=== PATIENT | female | born 1935 | race Caucasian/White ===

== ENCOUNTER 2017-10-02 11:40 | Inpatient (IN) | payer OTHER ==
--- OUTSIDE RECORDS SUMMARY | 2017-10-02 11:42 | XMS REPORT | Clinical Summary ---
:1935 Author Organization [facility] Address [address] [place] [address] Care Team Providers Name Role Phone Randy Flannery MD Primary Care Provider Allergies Active Allergy Reactions Severity Noted Date Comments Ciprofloxacin 12/07/2015 Codeine 12/07/2015 Penicillins 12/07/2015 Sulfa (Sulfonamide Antibiotics) 12/07/2015 Current Medications Prescription Sig. Disp. Refills Start Date End Date Status lisinopril-hydrochlorothia 09/25/2015 Active zide (PRINZIDE,ZESTORETIC) 20-12.5 mg per tablet aspirin 325 MG tablet Take 325 mg by Active mouth. 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
[2017-10-02 12:36] LABS: Absolute Lymphocytes (CBC) 0.4 K/uL (0.7-4.9); Absolute Monocytes 0.4 K/uL (0.1-1.3); Absolute Neutrophil 9.9 K/uL (1.8-8.0); Basophils % 0.3 % (0-1.3); Eosinophils % 0.6 % (0-4.4); Hematocrit 39.4 % (36.0-45.0); Lymphocytes % 4.1 % (15.3-44.8); MCH 31.9 pg (27.0-35.0); MPV 7.2 fL (7.6-11.3); Monocytes % 3.6 % (3.3-12.3); RBC Red Blood Cell Count 4.11 M/uL (3.86-4.86)
--- NOTE | 2017-10-02 12:38 | RAD REPORT ---
EXAM DESCRIPTION: RAD - Chest Single View - 10/02/2017 12:29 pm CLINICAL HISTORY: Chest pain. COMPARISON: 08/29/2017, 01/18/2011 FINDINGS: Portable technique limits examination quality. The lungs are grossly clear. The heart is normal in size. No displaced fractures.Bony remodeling prox imal right humerus is again noted. IMPRESSION: No acute intrathoracic process suspected.
[2017-10-02 12:39] LABS: Protime INR 0.94
[2017-10-02 12:43] LABS: Potassium 4.5 mEq/L (3.6-5.0)
[2017-10-02 12:49] LABS: Albumin 4.3 g/dL (3.2-5.5); Bilirubin Direct 0.1 mg/dL (0-0.2); Bilirubin Total 0.7 mg/dL (0.3-1.2); Magnesium 1.8 mg/dL (1.8-2.5)
[2017-10-02 12:51] LABS: CKMB Creatine Kinase MB 1.6 ng/ml (0.3-4.0)
[2017-10-02] MEDS ORDERED: NA CHLORIDE 0.9% 1,000 ML ONE (12:51)
[2017-10-02 12:59] LABS: Blood Morphology Comment NOT SEEN (NOT SEEN); Platelet Estimate ADEQ; Urine White Blood Cell Casts OK
--- NOTE | 2017-10-02 14:33 | RAD REPORT ---
EXAM DESCRIPTION: CTAbdomen Pelvis W Contrast - 10/02/2017 2:20 pm CLINICAL HISTORY: Abdominal pain. COMPARISON: None. TECHNIQUE: Biphasic CT imaging of the abdomen and pelvis was performed with 100 ml non-ionic IV cont rast. All CT scans are performed using dose optimization technique as appropriate and may include automated exposure control or mA/KV adjustment according to patient size. FINDINGS: The lung bases are clear.Moderate hiatal hernia. The liver, spleen, pancreas, adrenal glands and kidneys are within normal limits. Small benign renal cysts bilaterally. No bowel obstruction, free air, free fluid or abscess. Prominent diverticulosis is present involving the distal descending colon and sigmoid colon. Mild peridiverticular inflammatory changes are present in the left lower quadrant compatible with mild acute diverticulitis. No peridiverticular abscess. T he appendix is normal. No evidence of significant lymphadenopathy. Moderate lumbosacral degenerative changes. IMPRESSION: Mild acute diverticulitis is present involving the left lower quadrant colon. No peridiv erticular abscess.
--- NOTE | 2017-10-02 14:39 | EDPHYS ---
Physician Documentation [facility] Name: Marta Butterfield Age: 82 yrs Sex: Female : 1935 Arrival Date: 10/02/2017 Time: 11:44 Bed 18 Private MD: ED Physician Kane Madrid HPI: 10/02 12:27 This 82 yrs old Female presents to ER via Wheelchair with complaints of romna Abdominal Pain, High Blood Pressure, Vomiting. 12:27 The patient has elevated blood pressure and discovered this at home. Onset: The roman symptoms/episode began/occurred just prior to arrival, this morning. Modifying factors: The symptoms are aggravated by. Associated signs and symptoms: The patient has no apparent associated signs or symptoms. Severity of symptoms: At its worst the blood pressure was mild, moderate, in the emergency department the blood pressure is unchanged. The patient has not experienced similar symptoms in the past. Historical: - Allergies: 11:52 PENICILLINS; tw2 11:52 Multiple Allergies List Not Available; tw2 11:52 pain medicine; tw2 - Home Meds: 11:53 aspirin 81 mg oral chew [Active]; valsartan 80 mg oral tab 1 tab 2 times per day tw2 [Active]; donepezil 10 mg oral tab 1 tab once daily [Active]; - PMHx: 11:52 breast cancer; Dementia; Hypertension; tw2 - PSHx: 11:52 Left partial mastectomy; tw2 - Immunization history:: Adult Immunizations up to date. - Social history:: Smoking status: Patient/guardian denies using tobacco. ROS: 12:27 Constitutional: Negative for fever, chills, and weight loss, Eyes: Negative for injury, roman pain, redness, and discharge, ENT: Negative for injury, pain, and discharge, Neck: Negative for injury, pain, and swelling, Cardiovascular: Negative for chest pain, palpitations, and edema, Respiratory: Negative for shortness of breath, cough, wheezing, and pleuritic chest pain, Back: Negative for injury and pain, : Negative for injury, bleeding, discharge, and swelling, MS/Extremity: Negative for injury and deformity, Skin: Negative for injury, rash, and discoloration, Neuro: Negative for headache, weakness, numbness, tingling, and seizure, Psych: Negative for depression, anxiety, suicide ideation, homicidal ideation, and hallucinations, Allergy/Immunology: Negative for hives, rash, and allergies, Endocrine: Negative for neck swelling, polydipsia, polyuria, polyphagia, and marked weight changes, Hematologic/Lymphatic: Negative for swollen nodes, abnormal bleeding, and unusual bruising. 12:27 Abdomen/GI: Positive for abdominal pain, nausea and vomiting, of the right upper quadrant, left upper quadrant, right lower quadrant and left lower quadrant. Exam: 12:27 Constitutional: This is a well developed, well nourished patient who is awake, alert, roman and in no acute distress. Head/Face: Normocephalic, atraumatic. Eyes: Pupils equal round and reactive to light, extra-ocular motions intact. Lids and lashes normal. Conjunctiva and sclera are non-icteric and not injected. Cornea within normal limits. Periorbital areas with no swelling, redness, or edema. ENT: Nares patent. No nasal discharge, no septal abnormalities noted. Tympanic membranes are normal and external auditory canals are clear. Oropharynx with no redness, swelling, or masses, exudates, or evidence of obstruction, uvula midline. Mucous membranes moist. Neck: Trachea midline, no thyromegaly or masses palpated, and no cervical lymphadenopathy. Supple, full range of motion without nuchal rigidity, or vertebral point tenderness. No Meningismus. Chest/axilla: Normal chest wall appearance and motion. Nontender with no deformity. No lesions are appreciated. Cardiovascular: Regular rate and rhythm with a normal S1 and S2. No gallops, murmurs, or rubs. Normal PMI, no JVD. No pulse deficits. Respiratory: Lungs have equal breath sounds bilaterally, clear to auscultation and percussion. No rales, rhonchi or wheezes noted. No increased work of breathing, no retractions or nasal flaring. Abdomen/GI: Soft, non-tender, with normal bowel sounds. No distension or tympany. No guarding or rebound. No evidence of tenderness throughout. Back: No spinal tenderness. No costovertebral tenderness. Full range of motion. Skin: Warm, dry with normal turgor. Normal color with no rashes, no lesions, and no evidence of cellulitis. MS/ Extremity: Pulses equal, no cyanosis. Neurovascular intact. Full, normal range of motion. Neuro: Awake and alert, GCS 15, oriented to person, place, time, and situation. Cranial nerves II-XII grossly intact. Motor strength 5/5 in all extremities. Sensory grossly intact. Cerebellar exam normal. Normal gait. Psych: Awake, alert, with orientation to person, place and time. Behavior, mood, and affect are within normal limits. Vital Signs: 11:50 BP 144 / 81; Pulse 84; Resp 17; Temp 98.6(O); Pulse Ox 99% on R/A; Weight 58.97 kg (R); tw2 Height 5 ft. 6 in. (167.64 cm); Pain 7/10; 13:20 BP 171 / 83; Pulse 72; Resp 16; Temp 98.2; Pulse Ox 99% on R/A; Pain 4/10; ch 14:37 BP 168 / 81; Pulse 78; Resp 22; Temp 98.8(O); Pulse Ox 99% on R/A; ch 15:58 BP 148 / 84; Pulse 76; Resp 18; Temp 98.5; Pulse Ox 99% on R/A; Pain 2/10; ch 16:50 BP 156 / 68; Pulse 69; Resp 15; Temp 97.6; Pulse Ox 99% on R/A; Pain 2/10; ch 11:50 Body Mass Index 20.98 (58.97 kg, 167.64 cm) tw2 MDM: 11:57 Patient medically screened. [facility] 12:28 Data reviewed: vital signs, nurses notes, lab test result(s), EKG, radiologic studies, [facility] CT scan, plain films. 10/02 12:01 Order name: Basic Metabolic Panel 10/02 12:01 Order name: BNP 10/02 12:01 Order name: CBC with Diff 10/02 12:01 Order name: Ckmb 10/02 12: Order name: CPK 10/02 12:01 Order name: LFT's; Complete Time: 14:32 [facility] 10/02 12:01 Order name: Magnesium; Complete Time: 14:32 roman 10/02 12:01 Order name: PT-INR; Complete Time: 14:32 10/02 12:01 Order name: Ptt, Activated; Complete Time: 14:32 10/02 12:01 Order name: Troponin (emerg Dept Use Only); Complete Time: 14:32 [facility] 10/02 12:01 Order name: Lipase; Complete Time: 14:32 [facility] 10/02 12:01 Order name: Urine Culture [facility] 10/02 12:01 Order name: Basic Metabolic Panel; Complete Time: 14:32 [facility] 10/02 12:01 Order name: BNP B-Type Natriuretic Peptide; Complete Time: 14:32 [facility] 10/02 12:01 Order name: XRAY Chest (1 view); Complete Time: 14:32 [facility] 10/02 12:01 Order name: CT Abd/Pelvis - W/Contrast; Complete Time: 14:35 [facility] 10/02 12:01 Order name: CBC with Automated Diff; Complete Time: 14:32 [facility] 10/02 12:01 Order name: CKMB Creatine Kinase MB; Complete Time: 14:32 [facility] 10/02 12:01 Order name: Creatine Phosphokinase; Complete Time: 14:32 [facility] 10/02 12:49 Order name: CBC Smear Scan; Complete Time: 14:32 [facility] 10/02 14:33 Order name: US Abdomen Limited; Complete Time: 16:27 [facility] 10/02 15:11 Order name: Amylase Level [facility] 10/02 15:12 Order name: Lipase [facility] 10/02 15:14 Order name: Urine Dipstick--Ancillary (enter results); Complete Time: 16:27 10/02 12:01 Order name: EKG; Complete Time: 12:01 [facility] 10/02 12:01 Order name: Cardiac monitoring; Complete Time: 12:47 [facility] 10/02 12:01 Order name: EKG - Nurse/Tech; Complete Time: 12:47 [facility] 10/02 12:01 Order name: IV Saline Lock; Complete Time: 12:47 [facility] 10/02 12:01 Order name: Labs collected and sent; Complete Time: 12:48 [facility] 10/02 12:01 Order name: O2 Per Protocol; Complete Time: 12:48 [facility] 10/02 12:01 Order name: O2 Sat Monitoring; Complete Time: 12:48 [facility] 10/02 12:01 Order name: Urine Dipstick-Ancillary (obtain specimen); Complete Time: 14:55 [facility] 10/02 14:44 Order name: CONS Physician Consult [facility] 10/02 14:44 Order name: NPO [facility] Administered Medications: 12:57 Drug: NS 0.9% 1000 ml Route: IV; Rate: 125 ml/hr; Site: right antecubital; 16:53 Follow up: IV Status: Infusion continued upon admission; IV Intake: 400ml 14:35 CANCELLED (Duplicate Order): levofloxacin 500 mg 100 ml IVPB once over 60 mins [facility] 14:38 Drug: Cipro 400 mg Volume: 200 ml; Route: IVPB; Infused Over: 60 mins; Site: right ch antecubital; 15:54 Follow up: IV Status: Completed infusion 14:39 Drug: Flagyl 500 mg Volume: 100 ml; Route: IVPB; Rate: 200 ml/hr; Infused Over: 30 ch mins; Site: right antecubital; 15:54 Follow up: IV Status: Completed infusion 14:39 Drug: Pepcid 20 mg Route: IVP; Site: right antecubital; 15:55 Follow up: Response: No adverse reaction; Marked relief of symptoms 15:57 Drug: Zofran 4 mg Route: IVP; Site: left forearm; 15:57 Follow up: Response: No adverse reaction; Marked relief of symptoms Disposition: 10/02/17 14:38 Hospitalization ordered by Doug Castorena for Inpatient Admission. Preliminary diagnosis are Abdominal tenderness, Acute pancreatitis, Diverticular disease of intestine, Diverticulitis of large intestine without perforation or abscess without bleeding. - Bed requested for Telemetry/MedSurg (Inpatient). - Status is Inpatient Admission. ch - Condition is Stable. - Problem is new. - Symptoms have improved. UTI on Admission? No Signatures: Dispatcher [employer] Antonia Dominique RN RN Kane Madrid MD MD cha Gallardo, Ana ag Wise, Tara RN RN tw2 Corrections: (The following items were deleted from the chart) 14:35 14:35 levofloxacin 500 mg 100 ml IVPB once over 60 mins ordered. roman owens
--- NOTE | 2017-10-02 14:39 | ER ---
Nurse's Notes [facility] Name: Marta Butterfield Age: 82 yrs Sex: Female : 1935 Arrival Date: 10/02/2017 Time: 11:44 Bed 18 Private MD: Diagnosis: Abdominal tenderness;Acute pancreatitis;Diverticular disease of intestine;Diverticulitis of large intestine without perforation or abscess without bleeding Presentation: 10/02 11:49 Presenting complaint: Patient states: I woke up feeling crummy about 830, just weak tw2 feeling and my stomach hurts, my blood pressure was 188/85. Transition of care: patient was not received from another setting of care. Onset of symptoms. Care prior to arrival: None. 11:49 Method Of Arrival: Wheelchair tw2 11:49 Acuity: SANTI 3 tw2 Historical: - Allergies: 11:52 PENICILLINS; tw2 11:52 Multiple Allergies List Not Available; tw2 11:52 pain medicine; tw2 - Home Meds: 11:53 aspirin 81 mg oral chew [Active]; valsartan 80 mg oral tab 1 tab 2 times per day tw2 [Active]; donepezil 10 mg oral tab 1 tab once daily [Active]; - PMHx: 11:52 breast cancer; Dementia; Hypertension; tw2 - PSHx: 11:52 Left partial mastectomy; tw2 - Immunization history:: Adult Immunizations up to date. - Social history:: Smoking status: Patient/guardian denies using tobacco. Screenin:38 Abuse screen: Denies threats or abuse. Denies injuries from another. Nutritional ch screening: No deficits noted. Tuberculosis screening: No symptoms or risk factors identified. Fall Risk None identified. Assessment: 12:38 General: Appears in no apparent distress. comfortable, Behavior is calm, cooperative, ch appropriate for age. Pain: Complains of pain in epigastric area and abdomen diffusely Pain currently is 4 out of 10 on a pain scale. Neuro: Level of Consciousness is awake, alert, obeys commands. Respiratory: Airway is patent Respiratory effort is even, unlabored, Breath sounds are coarse bilaterally. GI: Abdomen is round non-distended, Bowel sounds present X 4 quads. Abd is soft and non tender X 4 quads. Reports lower abdominal pain, upper abdominal pain, gaseousness, nausea, vomiting. : No signs and/or symptoms were reported regarding the genitourinary system. Derm: Skin is pink, warm \T\ dry. 12:38 Reassessment: PT FINISHED DRINKING CONTRAST. ch 13:20 Reassessment: Patient appears in no apparent distress at this time. No changes from previously documented assessment. Patient and/or family updated on plan of care and expected duration. Pain level reassessed. Patient is alert, oriented x 3, equal unlabored respirations, skin warm/dry/pink. 14:37 Reassessment: Patient appears in no apparent distress at this time. pt oob to [facility] for ch urine sample with assistance. pt states she feels dizzy since the ct scan. no neuro deficits noted at this time. 14:49 Reassessment: Patient appears in no apparent distress at this time. Patient and/or ch family updated on plan of care and expected duration. Pain level reassessed. Patient is alert, oriented x 3, equal unlabored respirations, skin warm/dry/pink. Patient states feeling better. Patient states symptoms have improved. 14:56 Reassessment: Patient appears in no apparent distress at this time. Patient and/or ch family updated on plan of care and expected duration. Pain level reassessed. Patient is alert, oriented x 3, equal unlabored respirations, skin warm/dry/pink. dr camejo in oom now. 15:35 Reassessment: Patient appears in no apparent distress at this time. Patient and/or ch family updated on plan of care and expected duration. Pain level reassessed. pt vomiting in room. medicated per orders. 16:08 Reassessment: Patient appears in no apparent distress at this time. Patient and/or ch family updated on plan of care and expected duration. Pain level reassessed. Patient is alert, oriented x 3, equal unlabored respirations, skin warm/dry/pink. Patient states feeling better. Patient states symptoms have improved. 16:10 Reassessment: Patient appears in no apparent distress at this time. Patient and/or ch family updated on plan of care and expected duration. Pain level reassessed. Patient is alert, oriented x 3, equal unlabored respirations, skin warm/dry/pink. attempting to call report now. 16:50 Reassessment: Patient appears in no apparent distress at this time. Patient and/or ch family updated on plan of care and expected duration. Pain level reassessed. Patient is alert, oriented x 3, equal unlabored respirations, skin warm/dry/pink. report given at bedside to rosa. Vital Signs: 11:50 BP 144 / 81; Pulse 84; Resp 17; Temp 98.6(O); Pulse Ox 99% on R/A; Weight 58.97 kg (R); tw2 Height 5 ft. 6 in. (167.64 cm); Pain 7/10; 13:20 BP 171 / 83; Pulse 72; Resp 16; Temp 98.2; Pulse Ox 99% on R/A; Pain 4/10; ch 14:37 BP 168 / 81; Pulse 78; Resp 22; Temp 98.8(O); Pulse Ox 99% on R/A; ch 15:58 BP 148 / 84; Pulse 76; Resp 18; Temp 98.5; Pulse Ox 99% on R/A; Pain 2/10; ch 16:50 BP 156 / 68; Pulse 69; Resp 15; Temp 97.6; Pulse Ox 99% on R/A; Pain 2/10; ch 11:50 Body Mass Index 20.98 (58.97 kg, 167.64 cm) tw2 ED Course: 11:44 Patient arrived in ED. rg4 11:50 Triage completed. tw2 11:51 Arm band placed on. tw2 11:57 Kane Madrid MD is Attending Physician. [facility] 12:01 Antonia Virgen, EMIR is Primary Nurse. ch 12:15 Inserted saline lock: 20 gauge in right antecubital area, using aseptic technique. ch Blood collected. Missed attempt(s): 20 gauge in right forearm. Bleeding controlled, band aid applied, catheter tip intact. 12:28 X-ray completed. Portable x-ray completed in exam room. Patient tolerated procedure ag1 well. 12:29 XRAY Chest (1 view) In Process Unspecified. EDMS 12:38 No apparent distress. Resting quietly. ch 12:38 Patient has correct armband on for positive identification. Placed in gown. Bed in low ch position. Call light in reach. athletic monitor on. Pulse ox on. NIBP on. 12:38 No provider procedures requiring assistance completed. ch 12:55 EKG done, by human resources technician. reviewed by Kane Madrid MD. at1 14:19 CT Abd/Pelvis - W/Contrast In Process Unspecified. EDMS 14:37 Doug Camejo DO is Hospitalizing Provider. roman 15:02 Patient taken to ultrasound. hr 15:21 US Abdomen Limited In Process Unspecified. EDMS 15:25 Patient moved back from ultrasound. hr 16:50 Patient admitted, IV remains in place. ch Administered Medications: 12:57 Drug: NS 0.9% 1000 ml Route: IV; Rate: 125 ml/hr; Site: right antecubital; 16:53 Follow up: IV Status: Infusion continued upon admission; IV Intake: 400ml ch 14:35 CANCELLED (Duplicate Order): levofloxacin 500 mg 100 ml IVPB once over 60 mins roman 14:38 Drug: Cipro 400 mg Volume: 200 ml; Route: IVPB; Infused Over: 60 mins; Site: right ch antecubital; 15:54 Follow up: IV Status: Completed infusion ch 14:39 Drug: Flagyl 500 mg Volume: 100 ml; Route: IVPB; Rate: 200 ml/hr; Infused Over: 30 ch mins; Site: right antecubital; 15:54 Follow up: IV Status: Completed infusion ch 14:39 Drug: Pepcid 20 mg Route: IVP; Site: right antecubital; 15:55 Follow up: Response: No adverse reaction; Marked relief of symptoms ch 15:57 Drug: Zofran 4 mg Route: IVP; Site: left forearm; ch 15:57 Follow up: Response: No adverse reaction; Marked relief of symptoms ch Intake: 16:53 IV: 400ml; Total: 400ml. Outcome: 14:38 Decision to Hospitalize by Provider. roman 16:50 Admitted to Med/surg accompanied by nurse, family with patient, via wheelchair, room ch 230, with chart, Report called to rosa at bedside 16:50 Condition: stable 16:50 Instructed on the need for admit. 16:54 Patient left the ED. Signatures: Dispatcher [employer] EDMS Antonia Virgen, RN Kane Rosas ch, MD MD cha Rod, Haley hr Rebeca dey, sports umpire EKG Tat1 Olinda Arrington ag1 Stephanie Roberts RN RN tw2 Annie Gimenez rg4
[2017-10-02] MEDS ORDERED: CIPROFLOXACIN 400mg IV 400 MG/200 ML BAG IV ONE (14:42)
[2017-10-02] MEDS ORDERED: METRONIDAZOLE 500mg IVPB 500 MG/100 ML BAG IV ONE (14:42)
[2017-10-02] MEDS ORDERED: NA CHLORIDE 0.9% 1,000 ML IV SCH (15:00)
[2017-10-02] MEDS ORDERED: FENTANYL CITR 100 MCG/2 ML IV PRN (15:05)
[2017-10-02] MEDS ORDERED: HYDROCODONE/APAP 7.5/325 MG TAB PO PRN (15:05)
[2017-10-02] MEDS ORDERED: TRAMADOL HCL 50 MG TAB PO PRN (15:05)
[2017-10-02] MEDS ORDERED: ACETAMINOPHEN 650MG/RECT SUPP PR PRN (15:05)
[2017-10-02] MEDS ORDERED: SODIUM CHLORIDE 0.9% 10ML INJ IV PRN (15:05)
[2017-10-02] MEDS ORDERED: ONDANSETRON 4 MG/2 ML VIAL IV PRN (15:05)
[2017-10-02] MEDS ORDERED: ACETAMINOPHEN 500 MG TAB PO PRN (15:05)
[2017-10-02] MEDS: NA CHLORIDE 0.9% 1,000 ML IV SCH (15:09)
--- NOTE | 2017-10-02 15:17 | P.HP ---
Certification for Inpatient Patient admitted to: Inpatient With expected LOS: >2 Midnights Patient will require the following post-hospital care: None Practitioner: I am a practitioner with admitting privileges, knowledge of patient current condition, hospital course, and medical plan of care. Services: Services provided to patient in accordance with Admission requirements found in Title 42 Section 412.3 of the Code of Federal Regulations Patient History Date of Service: 10/02/17 Primary Care Provider: Dr. Kendall Reason for admission: Fatigue, abdominal pain History of Present Illness: 82-year-old female presented to the ER with fatigue and abdominal pain. The patient reports that she start to have some fatigue and abdominal pain over the last day. Pain was mainly localized to the periumbilical region. She rated the pain about a 6/10. It was associated with some nausea and vomiting. She had reported some chills and fatigue. This morning symptoms got worse. She had an upset stomach as well. Patient had reported over the last several months that she has been having some diarrhea. Patient has never had a colonoscopy in the past. In the ER the patient was evaluated. Vital signs stable. White count 10.9, percent neutrophils and absolute neutrophils were elevated. Lipase was elevated along with an abnormal GFR 55. Chest x-ray unremarkable. CT of the abdomen showed a moderate hiatal hernia. Mild to moderate distal descending colon and sigmoid colon diverticulitis noted. Due to nature her symptoms and age of the patient, she was admitted for further evaluation and treatment. When I saw the patient in the ER, pain seemed to be better controlled with medication. Daughter was at bedside. Patient has mild dementia with history of hypertension. She reports that about 1 month ago she was started on blood pressure medication-valsartan. This was discontinued due to low blood pressures. Otherwise she has been without any major symptoms. Allergies Multiple Allergy (Uncoded 08/30/17 00:20) Unknown Multiple Allergies List Allergy (Uncoded 09/25/16 01:18) Unknown Penicil Allergy (Uncoded 08/30/17 00:20) Unknown Home medications list reviewed: Yes - Past Medical/Surgical History Diabetic: No -: Dementia -: Hypertension -: History breast cancer -: Left mastectomy -: Bilateral total knee replacements Psychosocial/ Personal History: The patient is . She lives by herself. She is a . She has 3 children. - Family History Father -: Heart disease, Cancer (Prostate cancer) Brother -: Cancer (Colon cancer) - Social History Smoking Status: Never smoker Alcohol use: No CD- Drugs: No Caffeine use: No Place of Residence: Home Review of Systems General: Chills, Weakness, As per HPI Eyes: Unremarkable ENT: Unremarkable Respiratory: Unremarkable Cardiovascular: Unremarkable Gastrointestinal: Nausea, Vomiting, Abdominal Pain, As per HPI Genitourinary: Unremarkable Musculoskeletal: Unremarkable Integumentary: Unremarkable Neurological: As per HPI Lymphatics: Unremarkable Physical Examination - Physical Exam General: Alert, In no apparent distress, Oriented x3, Cooperative HEENT: Atraumatic, Normocephalic, PERRLA, Mucous membr. moist/pink Neck: Supple, No Thyromegaly Respiratory: Clear to auscultation bilaterally, Normal air movement Cardiovascular: Normal pulses, Regular rate/rhythm Gastrointestinal: Normal bowel sounds, Soft and benign, Non-distended, No masses , No rebound, No guarding, Tenderness (Tenderness noted to the left lower quadrant and around the umbilicus) Musculoskeletal: No erythema, No tenderness, No warmth Integumentary: No tenderness/swelling, No erythema, No warmth, No cyanosis Neurological: Normal speech, Normal strength at 5/5 x4 extr, Normal tone Lymphatics: No axilla or inguinal lymphadenopathy - Studies Laboratory Data (last 24 hrs) 10/02/17 12:15: PT 11.1, INR 0.94, APTT 27.9 10/02/17 12:15: WBC 10.9, Hgb 13.1, Hct 39.4, Plt Count 250 10/02/17 12:15: B-Natriuretic Peptide 79 10/02/17 12:15: Sodium 139, Potassium 4.5, BUN 20, Creatinine 0.97, Glucose 115 , Magnesium 1.8, Total Bilirubin 0.7, AST 22, ALT 13, Alkaline Phosphatase 102, Lipase 337 H Assessment and Plan - Problems (Diagnosis) (1) Abdominal pain Current Visit: Yes Status: Acute Plan: Abdominal pain secondary to diverticulitis to the distal descending and sigmoid region. Will treat with IV Cipro and Flagyl. Will keep the patient NPO for today. Will continue IV fluids. GI has been consulted. Patient will need colonoscopy in 4-6 weeks. She has never had a colonoscopy done before. There is a family history of colon cancer. She reports a history of breast cancer. Anticipate clear liquid diet tomorrow. Likely discharge in the next 2-3 days. Advanced directives address in detail with the patient. She understands the risks and benefits of CPR. Her medical power of corporate attorney was also at bedside. The patient wishes to be DNR. Qualifiers: Abdominal location: left lower quadrant Qualified Code(s): R10.32 - Left lower quadrant pain (2) Diverticulitis Current Visit: Yes Status: Acute Plan: Descending and sigmoid colon diverticulitis. Continue with above plan of care. Will keep the patient NPO. Will continue with Cipro and Flagyl. Anticipate starting a diet tomorrow. (3) Nausea and vomiting Current Visit: Yes Status: Acute Plan: Will provide medication as needed Qualifiers: Vomiting type: unspecified Vomiting Intractability: unspecified Qualified Code(s): R11.2 - Nausea with vomiting, unspecified (4) Hiatal hernia with GERD Current Visit: Yes Status: Chronic Plan: Will provide PPI. This can be further evaluated as an outpatient. (5) Dehydration Current Visit: Yes Status: Acute Plan: Will continue with IV fluids. Will monitor electrolytes closely. (6) Hypertension Current Visit: Yes Status: Chronic Plan: Patient with history of hypertension. She was started on valsartan about a month ago. This had to be discontinued due to low blood pressure. Blood pressure stable at this time. Will monitor closely. Will hold off on blood pressure medication. Qualifiers: Hypertension type: essential hypertension Qualified Code(s): I10 - Essential (primary) hypertension (7) Dementia Current Visit: Yes Status: Chronic Plan: Patient with mild dementia. She is in the process of being evaluated by neurology as an outpatient. Patient appropriate at this time. Will continue with her medication but will verify medication 1st. Discharge Plan: Home Plan to discharge in: 72 Hours - Advance Directives Does patient have a Living Will: No Does patient have a Durable POA for Healthcare: No - Code Status/Comfort Care Code Status Assessed: Yes (Patient DNR) Time Spent Managing Pts Care (In Minutes): 55
[2017-10-02] MEDS ORDERED: ONDANSETRON 4 MG/2 ML VIAL ONE (15:32)
--- NOTE | 2017-10-02 15:32 | RAD REPORT ---
EXAM DESCRIPTION: US - Abdomen Exam Limited - 10/02/2017 3:21 pm CLINICAL HISTORY: Abdominal pain. COMPARISON: None. FINDINGS: The gallbladder demonstrates no gallstones. No pericholecystic fluid or gallbladder wall t hickening. The common bile duct is normal measuring 4 mm. The liver demonstrates no findings of intrahepatic biliary dilatation. IMPRESSION: Unremarkable examination.
[2017-10-02 15:39] LABS: Urine Blood TRACE (NEG); Urine Glucose NEGATIVE (NEG); Urine Protein NEGATIVE (NEG); Urine Specific Gravity 1.015 (1.005-1.030)
[2017-10-02] MEDS: ENOXAPARIN 40 MG/0.4 ML SQ SCH (16:00)
[2017-10-02 18:10] LABS: Lipase 129 U/L (22-51)
[2017-10-02 18:26] LABS: Amylase Level 197 U/L (28-100)
[2017-10-02] MEDS ORDERED: CEFTRIAXONE 1000 MG/VIAL ONE (20:27)
[2017-10-02] MEDS ORDERED: CIPROFLOXACIN 400mg IV 400 MG/200 ML BAG IV SCH (21:00)
[2017-10-02] MEDS ORDERED: CEFTRIAXONE 1 GM/NS 50 ML 1 GM/50 ML BAG IV SCH (21:00)
[2017-10-02] MEDS ORDERED: MAGNESIUM SULFATE 1 gm IVPB 1 GM/100 ML BAG IV ONE (21:00)
[2017-10-02] MEDS ORDERED: NA CHLORIDE 0.9% 100 ML ONE (21:19)
[2017-10-03] MEDS: METRONIDAZOLE 500mg IVPB 500 MG/100 ML BAG IV SCH ×3 (00:20→17:00)
[2017-10-03] MEDS: NA CHLORIDE 0.9% 1,000 ML IV SCH ×3 (00:20→22:18)
[2017-10-03 05:05] LABS: Absolute Lymphocytes (CBC) 0.6 K/uL (0.7-4.9); Absolute Monocytes 0.4 K/uL (0.1-1.3); Absolute Neutrophil 4.3 K/uL (1.8-8.0); Basophils % 0.2 % (0-1.3); Hematocrit 33.5 % (36.0-45.0); Lymphocytes % 11.4 % (15.3-44.8); MCH 31.8 pg (27.0-35.0); MCV 94.9 fL (80-100); Monocytes % 6.9 % (3.3-12.3); RBC Red Blood Cell Count 3.53 M/uL (3.86-4.86)
[2017-10-03 05:27] LABS: Albumin 3.2 g/dL (3.2-5.5); Bilirubin Total 0.7 mg/dL (0.3-1.2); Magnesium 1.9 mg/dL (1.8-2.5); Potassium 3.6 mEq/L (3.6-5.0)
[2017-10-03] MEDS ORDERED: KCL 20 MEQ/100 mL IVPB 20 MEQ/100 ML BAG IV SCH (07:00)
--- NOTE | 2017-10-03 08:02 | EKG ---
Test Date: 2017-10-02 Test Time: 12:48:34 Aircraft Refueller: ROSEY MEASUREMENT RESULTS: Intervals: Rate: 77 NH: 156 QRSD: 92 QT: 372 QTc: 420 [place]: P: 17 NH: 156 QRS: -18 T: 25 INTERPRETIVE STATEMENTS: Normal sinus rhythm Normal ECG Compared to ECG 08/29/2017 22:49:08 Left-axis deviation no longer present Electronically Signed On 10-03-17 07:59:48 CDT by Jg Thompson
[2017-10-03] MEDS ORDERED: PANTOPRAZOLE 40 MG INJ IVP SCH (09:00)
[2017-10-03] MEDS: ENOXAPARIN 40 MG/0.4 ML SQ SCH (09:23)
--- NOTE | 2017-10-03 10:17 | P.PN ---
Subjective Date of Service: 10/03/17 Primary Care Provider: Dr. Kendall Chief Complaint: Fatigue, abdominal pain Subjective: Improving (Patient without any significant nausea. Pain much improved. Patient did report some pain to the right arm and right lower extremity after receiving potassium supplementation.) Physical Examination - Vital Signs Temperature: 98.2 F Blood Pressure: 133/62 Pulse: 68 Respirations: 16 Pulse Ox (%): 93 - Physical Exam General: Alert, In no apparent distress, Oriented x3, Cooperative HEENT: Atraumatic, Mucous membr. moist/pink Neck: Supple, No Thyromegaly Respiratory: Clear to auscultation bilaterally, Normal air movement Cardiovascular: Normal pulses, Regular rate/rhythm Gastrointestinal: Normal bowel sounds, Soft and benign, Non-distended, No masses , No rebound, No guarding, Tenderness (Minimal tenderness to the abdomen significantly improved) Musculoskeletal: No erythema, No tenderness, No warmth Integumentary: No tenderness/swelling, No erythema, No warmth, No cyanosis Neurological: Normal speech, Normal strength at 5/5 x4 extr, Normal tone, Normal affect Lymphatics: No axilla or inguinal lymphadenopathy - Studies Laboratory Data (last 24 hrs) 10/02/17 12:15: PT 11.1, INR 0.94, APTT 27.9 10/02/17 12:15: WBC 10.9, Hgb 13.1, Hct 39.4, Plt Count 250 10/02/17 12:15: B-Natriuretic Peptide 79 10/02/17 12:15: Sodium 139, Potassium 4.5, BUN 20, Creatinine 0.97, Glucose 115 , Magnesium 1.8, Total Bilirubin 0.7, AST 22, ALT 13, Alkaline Phosphatase 102, Lipase 337 H Medications List Reviewed: Yes Assessment & Plan - Problems (Diagnosis) (1) Abdominal pain Current Visit: Yes Status: Acute Plan: Abdominal pain secondary to diverticulitis to the distal descending and sigmoid region. Antibiotics were switched due to her allergies. Patient on Rocephin and Flagyl. Patient seems to be doing well. Will start clear liquid and advanced as tolerated. Anticipate possible discharge tomorrow. Patient will need colonoscopy in 4-6 weeks. Education on diverticulitis addressed. Qualifiers: Abdominal location: left lower quadrant Qualified Code(s): R10.32 - Left lower quadrant pain (2) Diverticulitis Current Visit: Yes Status: Acute Plan: Descending and sigmoid colon diverticulitis. Continue with above plan of care. (3) Nausea and vomiting Current Visit: Yes Status: Acute Plan: Will provide medication as needed Qualifiers: Vomiting type: unspecified Vomiting Intractability: unspecified Qualified Code(s): R11.2 - Nausea with vomiting, unspecified (4) Hiatal hernia with GERD Current Visit: Yes Status: Chronic Plan: Will provide PPI. This can be further evaluated as an outpatient. Patient may need GI evaluation as an outpatient to further address. (5) Dehydration Current Visit: Yes Status: Acute Plan: Will continue with IV fluids. Will monitor electrolytes closely. (6) Hypertension Current Visit: Yes Status: Chronic Plan: Patient with history of hypertension. She was started on valsartan about a month ago. This had to be discontinued due to low blood pressure. Blood pressure stable at this time. Will monitor closely. Will hold off on blood pressure medication. Qualifiers: Hypertension type: essential hypertension Qualified Code(s): I10 - Essential (primary) hypertension (7) Dementia Current Visit: Yes Status: Chronic Plan: Patient with mild dementia. She is in the process of being evaluated by neurology as an outpatient. Patient appropriate at this time. Will continue with her medication Discharge Plan: Home Plan to discharge in: 24 Hours Time Spent Managing Pts Care (In Minutes): 55
[2017-10-03] MEDS ORDERED: CEFTRIAXONE/SWI 1gm 1 GM/10 ML SYR IV SCH (21:00)
[2017-10-03] MEDS ORDERED: DONEPEZIL HCL 5 MG TAB PO SCH (21:00)
[2017-10-04] MEDS: METRONIDAZOLE 500mg IVPB 500 MG/100 ML BAG IV SCH ×2 (01:26→09:20)
[2017-10-04 05:38] LABS: Absolute Lymphocytes (CBC) 0.8 K/uL (0.7-4.9); Absolute Monocytes 0.6 K/uL (0.1-1.3); Absolute Neutrophil 1.9 K/uL (1.8-8.0); Basophils % 0.5 % (0-1.3); Eosinophils % 1.3 % (0-4.4); Hematocrit 30.8 % (36.0-45.0); Lymphocytes % 24.9 % (15.3-44.8); MCH 32.8 pg (27.0-35.0); MCV 94.6 fL (80-100); MPV 6.8 fL (7.6-11.3); Monocytes % 16.8 % (3.3-12.3); RBC Red Blood Cell Count 3.26 M/uL (3.86-4.86)
[2017-10-04 05:51] LABS: Albumin 3.1 g/dL (3.2-5.5); Bilirubin Total 0.5 mg/dL (0.3-1.2); Magnesium 1.7 mg/dL (1.8-2.5); Potassium 3.4 mEq/L (3.6-5.0); Protein, Total 5.4 g/dL (6.0-8.3)
[2017-10-04] MEDS ORDERED: PANTOPRAZOLE 40MG TABLET PO SCH (06:30)
[2017-10-04] MEDS ORDERED: MAGNESIUM SULFATE 1 gm IVPB 1 GM/100 ML BAG IV ONE (06:35)
[2017-10-04 06:38] LABS: Platelet Estimate ADEQ; Urine White Blood Cell Casts OK
[2017-10-04 06:39] LABS: Blood Morphology Comment NOT SEEN (NOT SEEN)
[2017-10-04] MEDS ORDERED: POTASSIUM CL SA 10 MEQ TAB PO ONE (09:00)
[2017-10-04] MEDS ORDERED: ASPIRIN 81 MG CHEWABLE TABLET PO SCH (09:00)
[2017-10-04] MEDS: ENOXAPARIN 40 MG/0.4 ML SQ SCH (09:20)
[2017-10-04] MEDS: NA CHLORIDE 0.9% 1,000 ML IV SCH (09:21)
--- NOTE | 2017-10-04 10:17 | P.DS ---
Admission Date: 10/02/17 Discharge Date: 10/04/17 Primary Care Provider: Dr. Kendall Disposition: ROUTINE DISCHARGE Discharge Condition: GOOD Reason for Admission: Fatigue, abdominal pain Consultations: GI=Dr. Parker Procedures: Abdominal ultrasound: Unremarkable. CT scan: FINDINGS: The lung bases are clear.Moderate hiatal hernia. The liver, spleen, pancreas, adrenal glands and kidneys are within normal limits. Small benign renal cysts bilaterally. No bowel obstruction, free air, free fluid or abscess. Prominent diverticulosis is present involving the distal descending colon and sigmoid colon. Mild peridiverticular inflammatory changes are present in the left lower quadrant compatible with mild acute diverticulitis. No peridiverticular abscess. The appendix is normal. No evidence of significant lymphadenopathy. Moderate lumbosacral degenerative changes. IMPRESSION: Mild acute diverticulitis is present involving the left lower quadrant colon. No peridiverticular abscess. - Problems (1) Abdominal pain Current Visit: Yes Status: Acute Qualifiers: Abdominal location: left lower quadrant Qualified Code(s): R10.32 - Left lower quadrant pain (2) Diverticulitis Current Visit: Yes Status: Acute (3) Nausea and vomiting Current Visit: Yes Status: Acute Qualifiers: Vomiting type: unspecified Vomiting Intractability: unspecified Qualified Code(s): R11.2 - Nausea with vomiting, unspecified (4) Hiatal hernia with GERD Current Visit: Yes Status: Chronic (5) Dehydration Current Visit: Yes Status: Acute (6) Hypertension Current Visit: Yes Status: Chronic Qualifiers: Hypertension type: essential hypertension Qualified Code(s): I10 - Essential (primary) hypertension (7) Dementia Current Visit: Yes Status: Chronic Brief History of Present Illness: 82-year-old female presented to the ER with fatigue and abdominal pain. The patient reports that she start to have some fatigue and abdominal pain over the last day. Pain was mainly localized to the periumbilical region. She rated the pain about a 6/10. It was associated with some nausea and vomiting. She had reported some chills and fatigue. This morning symptoms got worse. She had an upset stomach as well. Patient had reported over the last several months that she has been having some diarrhea. Patient has never had a colonoscopy in the past. In the ER the patient was evaluated. Vital signs stable. White count 10.9, percent neutrophils and absolute neutrophils were elevated. Lipase was elevated along with an abnormal GFR 55. Chest x-ray unremarkable. CT of the abdomen showed a moderate hiatal hernia. Mild to moderate distal descending colon and sigmoid colon diverticulitis noted. Due to nature her symptoms and age of the patient, she was admitted for further evaluation and treatment. When I saw the patient in the ER, pain seemed to be better controlled with medication. Daughter was at bedside. Patient has mild dementia with history of hypertension. She reports that about 1 month ago she was started on blood pressure medication-valsartan. This was discontinued due to low blood pressures. Otherwise she has been without any major symptoms. Hospital Course: Patient presented with abdominal pain. Patient found to have left sided diverticulitis. CT scan showed diverticulitis. No diverticular abscess noted. Patient also found to have hiatal hernia. Abdominal ultrasound unremarkable. C diff culture was neg. The patient was admitted and treated with IV antibiotic therapy. The patient was able to tolerate her diet. Pain well controlled. Patient evaluated by GI. No intervention needed at this. At discharge patient will continue with Ceftin 250 mg 1 pill twice daily and Flagyl 500 mg 1 pill 3 times a day for 7 more days. Zofran 4 mg 3 times a day as needed for nausea will be provided. Education on diverticulitis will be provided. Recommendation is for the patient to follow up with GI in 2-4 weeks. Recommendation is for the patient to have a colonoscopy in 4-6 weeks to further address and monitor. Patient with GERD with hiatal hernia. Patient will continue with Protonix 40 mg 1 pill once daily. Education on GERD and hiatal hernia will be provided. Patient with dementia. Patient will continue with her medication-Aricept Patient will continue with aspirin 81 mg daily. Patient with history of hypertension. Blood pressure mildly elevated. Patient previously took beta-larissa therapy the was not able to tolerated. Blood pressure is slightly elevated at discharge. At discharge patient will continue with Norvasc 2.5 mg daily. Recommendation is to maintain blood pressures less 150/80. Further adjustment can be done by her PCP. Patient may need to hold her medication if blood pressure less than 110 systolic. Vital Signs/Physical Exam: Temp Pulse Resp BP Pulse Ox 98.6 F 65 18 154/67 H 94 10/04/17 08:00 10/04/17 08:00 10/04/17 08:00 10/04/17 08:00 10/04/17 08:00 General: Alert, In no apparent distress, Oriented x3, Cooperative, Demented HEENT: Atraumatic, Mucous membr. moist/pink Neck: Supple, No Thyromegaly Respiratory: Clear to auscultation bilaterally Cardiovascular: Normal pulses, Regular rate/rhythm Gastrointestinal: Normal bowel sounds, Soft and benign, Non-distended, No tenderness, No masses, No rebound, No guarding Musculoskeletal: No erythema, No tenderness, No warmth Integumentary: No tenderness/swelling, No erythema, No warmth, No cyanosis Neurological: Normal speech, Normal strength at 5/5 x4 extr, Normal tone, Normal affect Laboratory Data at Discharge: WBC 3.3 K/uL (4.3-10.9) L D 10/04/17 04:58 Hgb 10.7 g/dL (12.0-15.0) L 10/04/17 04:58 Hct 30.8 % (36.0-45.0) L 10/04/17 04:58 Plt Count 172 K/uL (152-406) 10/04/17 04:58 PT 11.1 SECONDS (9.5-12.5) 10/02/17 12:15 INR 0.94 10/02/17 12:15 APTT 27.9 SECONDS (24.3-36.9) 10/02/17 12:15 Sodium 138 mEq/L (135-145) 10/04/17 04:58 Potassium 3.4 mEq/L (3.6-5.0) L 10/04/17 04:58 BUN 9 mg/dL (6-20) 10/04/17 04:58 Creatinine 0.96 mg/dL (0.44-1.00) 10/04/17 04:58 Glucose 95 mg/dL (65-120) 10/04/17 04:58 Magnesium 1.7 mg/dL (1.8-2.5) L 10/04/17 04:58 Total Bilirubin 0.5 mg/dL (0.3-1.2) 10/04/17 04:58 AST 27 IU/L (10-42) 10/04/17 04:58 ALT 15 IU/L (10-60) 10/04/17 04:58 Alkaline Phosphatase 72 IU/L (42-121) 10/04/17 04:58 B-Natriuretic Peptide 79 pg/ml (<=100) 10/02/17 12:15 Amylase 197 U/L (28-100) H 10/02/17 17:49 Lipase 129 U/L (22-51) H 10/02/17 17:49 Home Medications: Aspirin 81 mg PO DAILY 10/02/17 Donepezil [Aricept*] 5 mg PO BEDTIME 10/02/17 Amlodipine [Norvasc] 2.5 mg PO DAILY #30 tab 10/04/17 Cefuroxime [Ceftin] 250 mg PO BID #14 tab 10/04/17 Metronidazole [Flagyl] 500 mg PO Q8H #21 tablet 10/04/17 Ondansetron HCl [Zofran] 4 mg PO TID PRN #10 tablet 10/04/17 Pantoprazole [Protonix Tab*] 40 mg PO DAILYAC #30 tab 10/04/17 New Medications: Amlodipine [Norvasc] 2.5 mg PO DAILY #30 tab Cefuroxime [Ceftin] 250 mg PO BID #14 tab Metronidazole [Flagyl] 500 mg PO Q8H #21 tablet Ondansetron HCl [Zofran] 4 mg PO TID PRN #10 tablet PRN Reason: Nausea / Vomiting Pantoprazole [Protonix Tab*] 40 mg PO DAILYAC #30 tab Patient Discharge Instructions: 1. Patient will need a follow up with her PCP in 1 week to follow up this hospitalization. 2. Patient presented with abdominal pain. Patient found to have left sided diverticulitis. At discharge patient will continue with Ceftin 250 mg 1 pill twice daily and Flagyl 500 mg 1 pill 3 times a day for 7 more days. Zofran 4 mg 3 times a day as needed for nausea will be provided. Education on diverticulitis will be provided. Recommendation is for the patient to follow up with GI in 2-4 weeks. Recommendation is for the patient to have a colonoscopy in 4-6 weeks to further address and monitor. 3. Patient with GERD with hiatal hernia. Patient will continue with Protonix 40 mg 1 pill once daily. Education on GERD and hiatal hernia will be provided. 4. Patient with dementia. Patient will continue with her medication-Aricept. 5. Patient will continue with aspirin 81 mg daily. 6. Patient with history of hypertension. Blood pressure mildly elevated. At discharge patient will continue with Norvasc 2.5 mg daily. Recommendation is to maintain blood pressures less 150/80. Further adjustment can be done by her PCP. Patient may need to hold her medication if blood pressure less than 110 systolic. Diet: Diverticular diet Activity: Fall precautions Time spent managing pt's care (in minutes): 55
== END 2017-10-04 14:53 | disposition home or self-care (01) | DRG 392 ==
LOC: ER 11:40 → ERHOLD 14:41 → 2ND 16:29
PROVIDERS: ADMIT Family Medicine; ATTEND Family Medicine
DX: K57.92 Diverticulitis of intestine, part unspecified, without perforation or abscess without bleeding (principal); K44.9 Diaphragmatic hernia without obstruction or gangrene; K21.9 Gastro-esophageal reflux disease without esophagitis; E86.0 Dehydration; I10 Essential (primary) hypertension; F03.90 Unspecified dementia, unspecified severity, without behavioral disturbance, psychotic disturbance, mood disturbance, and anxiety; Z88.0 Allergy status to penicillin; Z85.3 Personal history of malignant neoplasm of breast; Z96.653 Presence of artificial knee joint, bilateral
CPT/HCPCS: 36415; 71045; 74177; 76705; 80048; 80053; 80076; 81003; 82150; 82550; 82553; 83690; 83735; 83880; 84484; 85025; 85610; 85730; 87045; 87046; 87086; 87088; 87493; 93005; 99285; J0696; J0744; J1650; J2405; J3475; J7030; Q9967

== ENCOUNTER 2018-01-28 00:11 | Emergency (ER) | payer OTHER ==
--- OUTSIDE RECORDS SUMMARY | 2018-01-28 00:13 | XMS REPORT | Clinical Summary ---
:1935 Author Organization [facility] Address [address] [place] [address] Care Team Providers Name Role Phone Randy [...] Health Maintenance Due Date Last Done Comments SHINGRIX VACCINE (#1) 1987 ZOSTER VACCINE 1997 PNEUMOCOCCAL POLYSACCHARIDE VACCINE AGE 65 AND OVER 2002 PNEUMOCOCCAL-13 2002 INFLUENZA VACCINE 01/23/2018 Results Not on fileafter 01/27/2017 Insurance Payer Benefit Plan / Group Subscriber ID Type Phone Address [employer]HC MEDICARE [employer] HMO
[2018-01-28] MEDS ORDERED: TETANUS & DIPHTHERIA TOX,ADULT 0.5 ML VIAL ONE (01:06)
--- NOTE | 2018-01-28 02:42 | ER ---
Nurse's Notes [facility] Name: Marta Butterfield Age: 82 yrs Sex: Female : 1935 Arrival Date: 01/28/2018 Time: 00:12 Bed 5 Private MD: Asad Buckley H Diagnosis: Head injury. Contusion right wrist. S/P Fall Presentation: 01/28 00:35 Presenting complaint: Patient states: "I fell going after a hobson and tripped and fell jd3 forwards from a standing position onto my head and elbow." pt denied LOC and fina on blood thinners. Care prior to arrival: None. Mechanism of Injury: Fall from standing position. Trauma event details: Injury occurred in the [facility]. 00:35 Method Of Arrival: Wheelchair jd3 00:35 Acuity: SANTI 3 jd3 00:48 Transition of care: patient was not received from another setting of care. Onset of jd3 symptoms was January 28, 2018. Risk Assessment: Do you want to hurt yourself or someone else? Patient reports no desire to harm self or others. Initial Sepsis Screen: Does the patient meet any 2 criteria? No. Patient's initial sepsis screen is negative. Does the patient have a suspected source of infection? No. Patient's initial sepsis screen is negative. Trauma Activation: Physician: ED Physician; Name: Dr. Villareal; Notified At: ; Arrived At: Physician: General Surgeon; Name: ; Notified At: ; Arrived At: Physician: Radiology; Name: Kathryn; Notified At: ; Arrived At: Physician: Respiratory; Name: ; Notified At: ; Arrived At: Physician: Lab; Name: ; Notified At: ; Arrived At: Historical: - Allergies: 00:55 PENICILLINS; jd3 00:55 Ciprofloxacin; jd3 00:55 Codeine; jd3 00:55 Lortab; jd3 00:55 Vicodin; jd3 00:55 Bactrim; jd3 00:55 general anesthesia; jd3 00:55 Fosamax; jd3 00:55 Mevacor; jd3 00:55 Lipitor; jd3 00:55 Niacin; jd3 00:55 tramadol; jd3 00:55 morphine; jd3 - Home Meds: 00:55 aspirin 81 mg Oral chew [Active]; donepezil 10 mg Oral tab 1 tab once daily [Active]; jd3 donepezil 10 mg oral tab [Active]; Norvasc 2.5 mg Oral tab [Active]; - PMHx: 00:55 breast cancer; Dementia; Hypertension; Diverticulitis; jd3 - PSHx: 00:55 Left partial mastectomy; Heart stents; right arm sx; bryan knee sx; jd3 - Immunization history: Last tetanus immunization: unknown. - Social history:: Smoking status: Patient/guardian denies using tobacco. - Ebola Screening: : Patient negative for fever greater than or equal to 101.5 degrees Fahrenheit, and additional compatible Ebola Virus Disease symptoms. Screenin:48 Abuse screen: Denies threats or abuse. Tuberculosis screening: No symptoms or risk jd3 factors identified. 00:56 Nutritional screening: No deficits noted. Fall Risk Fall in past 12 months (25 points). jd3 Ambulatory Aid- None/Bed Rest/Nurse Assist (0 pts). Gait- Weak (10 pts.). Mental Status- Oriented to own ability (0 pts). Total Sims Fall Scale indicates Low Risk Score (25-44 pts). Fall prevention measures have been instituted. Side Rails Up X 2 Placed close to Nursing Station Frequent Obs/Assesments occuring Family Present and informed to notify staff if they need to leave bedside. Primary Survey: 01:00 Breathing/Chest: Respiratory pattern: regular, Respiratory effort: spontaneous, tl1 unlabored, Breath sounds: clear, bilaterally. Chest inspection: symmetrical rise and fall of the chest. Circulation: Skin color: pink, Skin temperature: warm, dry. Disability Alert. Reassessment Breathing/Chest Respiratory pattern Regular Respiratory effort Spontaneous Unlabored Breath sounds Clear Chest inspection Symmetrical Circulation Pulses Palpable Color [place] Temperature Warm Dry. Secondary Survey: 01:01 HEENT: Head No injury/deformity Face Other 2cm laceration to right eyebrow Eyes: No tl1 injury or deformity noted. Ears: clear bilaterally. Nose: clear to bilateral nares. Gastrointestinal: No deficits noted. : No deficits noted. Musculoskeletal: No deficits noted. Injury Description: Laceration sustained to outer aspect of right eyebrow. Assessment: 00:38 General: Appears in no apparent distress. Behavior is calm, cooperative, appropriate jd3 for age. Pain: Complains of pain in head and right elbow Pain currently is 3 out of 10 on a pain scale. Quality of pain is described as aching. Neuro: Level of Consciousness is awake, alert, obeys commands, Oriented to person, place, time, situation, Speech is normal, Pupils are PERRLA, Intact. EENT: No signs and/or symptoms were reported regarding the EENT system. Cardiovascular: Heart tones S1 S2 present Capillary refill < 3 seconds Patient's skin is warm and dry. Respiratory: Airway is patent Respiratory effort is even, unlabored, Respiratory pattern is regular, symmetrical, Breath sounds are clear bilaterally. GI: Abdomen is round non-distended, Patient currently denies nausea, vomiting. : No signs and/or symptoms were reported regarding the genitourinary system. Derm: Skin is intact, Skin is dry, Skin is normal, Skin temperature is warm. Musculoskeletal: Circulation, motion, and sensation intact. Range of motion: intact in all extremities. Injury Description: skin tear to right elbow. and laceration about 2 cm in length to right brow area. 01:09 Reassessment: Patient appears in no apparent distress at this time. Patient and/or jd3 family updated on plan of care and expected duration. Pain level reassessed. Patient is alert, oriented x 3, equal unlabored respirations, skin warm/dry/pink. 02:13 Reassessment: Patient appears in no apparent distress at this time. Patient and/or jd3 family updated on plan of care and expected duration. Pain level reassessed. Patient is alert, oriented x 3, equal unlabored respirations, skin warm/dry/pink. 02:53 Reassessment: Patient appears in no apparent distress at this time. Patient and/or jd3 family updated on plan of care and expected duration. Pain level reassessed. Patient is alert, oriented x 3, equal unlabored respirations, skin warm/dry/pink. pt reported understanding of discharge instructions, assisted pt to front of ER with wheelchair. Vital Signs: 00:46 BP 170 / 93; Pulse 72; Resp 16 S; Pulse Ox 99% on R/A; Weight 58.97 kg (R); Height 5 jd3 ft. 6 in. (167.64 cm) (R); Pain 3/10; 01:08 BP 175 / 80; Pulse 60; Resp 16 S; Pulse Ox 99% on R/A; jd3 02:13 BP 153 / 62; Pulse 60; Resp 16 S; Pulse Ox 98% on R/A; jd3 00:46 Body Mass Index 20.98 (58.97 kg, 167.64 cm) jd3 [place] Coma Score: 00:46 Eye Response: spontaneous(4). Verbal Response: oriented(5). Motor Response: obeys jd3 commands(6). Total: 15. Trauma Score (Adult): 00:46 Eye Response: spontaneous(1); Verbal Response: oriented(1); Motor Response: obeys jd3 commands(2); Systolic BP: > 89 mm Hg(4); Respiratory Rate: 10 to 29 per min(4); [place] Score: 15; Trauma Score: 12 ED Course: 00:12 Patient arrived in ED. am2 00:12 Asad Buckley DO is Private Physician. am2 00:16 Constantin Villareal MD is Attending Physician. pkl 00:33 Georgi Christensen RN is Primary Nurse. jd3 00:37 Triage completed. jd3 00:48 Bed in low position. Call light in reach. Side rails up X2. Adult w/ patient. jd3 00:48 Patient maintains SpO2 saturation greater than 95% on room air. jd3 00:56 Arm band placed on. jd3 00:59 X-ray completed. Portable x-ray completed in exam room. Patient tolerated procedure kw well. 01:00 Wrist Right 3 View XRAY In Process Unspecified. EDMS 01:[address] via wheelchair. kw1 01:50 CT Head Brain wo Cont In Process Unspecified. EDMS 01:52 CT completed. Patient tolerated procedure well. Patient moved back from CT. kw1 02:41 Asad Buckley DO is Referral Physician. pkl 02:50 No provider procedures requiring assistance completed. Patient did not have IV access jd3 during this emergency room visit. 02:52 Thermoregulation: warm blanket given to patient. jd3 Administered Medications: 01:06 Drug: Tetanus-Diphtheria Toxoid Adult 0.5 ml {Cloth Picker: Relive. Exp: jd3 03/13/2020. Lot #: [id number]. } Route: IM; Site: left deltoid; 01:25 Follow up: Response: No adverse reaction jd3 Intake: 02:51 PO: 0ml; Total: 0ml. jd3 Output: 02:51 Urine: 0ml; Total: 0ml. jd3 Outcome: 02:42 Discharge ordered by . sunil 02:51 Discharged to home via wheelchair, with family. jd3 02:51 Condition: stable 02:51 Discharge instructions given to patient, family, Instructed on discharge instructions, follow up and referral plans. Demonstrated understanding of instructions, follow-up care. 02:51 Patient's length of stay in the Emergency Department was greater than 2 hours. waiting jd3 on diagnostic results.Patient's length of stay extended due to 02:53 Patient left the ED. jd3 Signatures: Dispatcher [employer] EDMS Constantin Villareal MD MD pkl Whitley, Kimberlee kw Lasagna, Tonya, RN RN tl1 Rebeca Keys Jonathon RN RN jd3 Yane Griffin kw1 Corrections: (The following items were deleted from the chart) 00:59 00:[address] Mono bui jd3
--- NOTE | 2018-01-28 02:42 | EDPHYS ---
Physician Documentation [facility] Name: Marta Butterfield Age: 82 yrs Sex: Female : 1935 Arrival Date: 01/28/2018 Time: 00:12 Bed 5 Private MD: Asad Buckley H ED Physician Constantin Villareal HPI: 01/28 00:54 This 82 yrs old Female presents to ER via Wheelchair with complaints of pkl Facial Injury, Fall Injury. 00:55 Details of fall: The patient fell from an upright position. Onset: The symptoms/episode pkl began/occurred just prior to arrival. Associated injuries: The patient sustained injury to the head, contusion, hematoma, swelling, right eye, right elbow, skin tear, right wrist, contusion, painful injury. Historical: - Allergies: 00:55 PENICILLINS; jd3 00:55 Ciprofloxacin; jd3 00:55 Codeine; jd3 00:55 Lortab; jd3 00:55 Vicodin; jd3 00:55 Bactrim; jd3 00:55 general anesthesia; jd3 00:55 Fosamax; jd3 00:55 Mevacor; jd3 00:55 Lipitor; jd3 00:55 Niacin; jd3 00:55 tramadol; jd3 00:55 morphine; jd3 - Home Meds: 00:55 aspirin 81 mg Oral chew [Active]; donepezil 10 mg Oral tab 1 tab once daily [Active]; jd3 donepezil 10 mg oral tab [Active]; Norvasc 2.5 mg Oral tab [Active]; - PMHx: 00:55 breast cancer; Dementia; Hypertension; Diverticulitis; jd3 - PSHx: 00:55 Left partial mastectomy; Heart stents; right arm sx; bryan knee sx; jd3 - Immunization history: Last tetanus immunization: unknown. - Social history:: Smoking status: Patient/guardian denies using tobacco. - Ebola Screening: : Patient negative for fever greater than or equal to 101.5 degrees Fahrenheit, and additional compatible Ebola Virus Disease symptoms. ROS: 00:55 ENT: Negative for injury, pain, and discharge. pkl 00:55 Eyes: Positive for swelling, superficial right eyebrow. 00:55 Neck: Negative for injury or acute deformity. 00:55 Cardiovascular: Negative for chest pain. 00:55 Respiratory: Negative for cough, shortness of breath. 00:55 Abdomen/GI: Negative for abdominal pain, nausea, vomiting, and diarrhea. 00:55 Back: Negative for acute changes. 00:55 : Negative for urinary symptoms. 00:55 MS/extremity: Positive for contusion, tenderness, of the right elbow, skin tear. 00:55 Neuro: Negative for altered mental status, loss of consciousness. pkl Exam: 00:55 ENT: Nares patent. No nasal discharge, no septal abnormalities noted. Tympanic pkl membranes are normal and external auditory canals are clear. Oropharynx with no redness, swelling, or masses, exudates, or evidence of obstruction, uvula midline. Mucous membranes moist. 00:55 Head/face: Noted is contusion, swelling, that is mild, of the right eye. 00:55 Neck: Exam negative for acute changes. 00:55 Chest/axilla: Exam negative for acute changes. 00:55 Cardiovascular: Rate: normal, Rhythm: regular. 00:55 Respiratory: the patient does not display signs of respiratory distress, Respirations: normal, Breath sounds: are clear throughout. 00:55 Abdomen/GI: Bowel sounds: normal, Palpation: abdomen is soft and non-tender, in all quadrants. 00:55 Back: Exam negative for acute changes. 00:55 : Exam negative for acute changes. 00:55 Musculoskeletal/extremity: Extremities: grossly normal except: noted in the right elbow: skin tear, noted in the right wrist: pain, tenderness. 00:55 Neuro: Orientation: is normal, Mentation: is normal, Cranial nerves: grossly normal, Motor: is normal. Vital Signs: 00:46 BP 170 / 93; Pulse 72; Resp 16 S; Pulse Ox 99% on R/A; Weight 58.97 kg (R); Height 5 jd3 ft. 6 in. (167.64 cm) (R); Pain 3/10; 01:08 BP 175 / 80; Pulse 60; Resp 16 S; Pulse Ox 99% on R/A; jd3 02:13 BP 153 / 62; Pulse 60; Resp 16 S; Pulse Ox 98% on R/A; jd3 00:46 Body Mass Index 20.98 (58.97 kg, 167.64 cm) jd3 [place] Coma Score: 00:46 Eye Response: spontaneous(4). Verbal Response: oriented(5). Motor Response: obeys jd3 commands(6). Total: 15. Trauma Score (Adult): 00:46 Eye Response: spontaneous(1); Verbal Response: oriented(1); Motor Response: obeys jd3 commands(2); Systolic BP: > 89 mm Hg(4); Respiratory Rate: 10 to 29 per min(4); [place] Score: 15; Trauma Score: 12 MDM: 00:16 Patient medically screened. pkl 02:40 Data reviewed: vital signs, nurses notes, radiologic studies, CT scan, plain films. pkl 01/28 00:48 Order name: CT Head Brain wo Cont pkl 01/28 00:48 Order name: Wrist Right 3 View XRAY pk Administered Medications: 01:06 Drug: Tetanus-Diphtheria Toxoid Adult 0.5 ml {Sanding Machine Tender: Notch. Exp: jd3 03/13/2020. Lot #: [id number]. } Route: IM; Site: left deltoid; 01:25 Follow up: Response: No adverse reaction jd3 Disposition: 01/28/18 02:42 Discharged to Home. Impression: Head injury. Contusion right wrist. S/P Fall. - Condition is Stable. - Medication Reconciliation Form, Thank You Letter, Antibiotic Education, Prescription Opioid Use form. - Follow up: Asad Buckley DO; When: 2 - 3 days; Reason: Re-evaluation by your physician. - Problem is new. - Symptoms have improved. Signatures: Dispatcher [employer] EDMS Constantin Villareal MD MD pkGeorgi Lowe RN RN jd3 Corrections: (The following items were deleted from the chart) 02:53 02:42 01/28/2018 02:42 Discharged to Home. Impression: Head injury. Contusion right jd3 wrist. S/P Fall. Condition is Stable. Forms are Medication Reconciliation Form, Thank You Letter, Antibiotic Education, Prescription Opioid Use. Follow up: Asad Buckley; When: 2 - 3 days; Reason: Re-evaluation by your physician. Problem is new. Symptoms have improved. pkl
--- NOTE | 2018-01-28 08:19 | RAD REPORT ---
EXAM DESCRIPTION: RAD - Wrist Right 3 View - 01/28/2018 1:03 am CLINICAL HISTORY: PAIN Pain COMPARISON: No comparisons FINDINGS: Diffuse osteopenia is seen. Moderate arthritic changes are noted. Hardware plate is presen t in the distal radius. No acute fracture or subluxation seen.
--- NOTE | 2018-01-28 08:29 | RAD REPORT ---
EXAM DESCRIPTION: CT - Head Brain Wo Cont - 01/28/2018 3:51 am CLINICAL HISTORY: fall Head injury. COMPARISON: Head Brain Wo Cont dated 08/29/2017; Facial Bones W/ Mpr dated 09/24/2016 TECHNIQUE: All CT scans are performed using dose optimization technique as appropriate and may inclu de automated exposure control or mA/KV adjustment according to patient size. FINDINGS: No intracranial hemorrhage, hydrocephalus or extra-axial fluid collection.Mild generalized brain atrophy is present with mild periventricular and deep white matter chronic microvascular ische octavia changes.No areas of brain edema or evidence of midline shift. The paranasal sinuses and mastoids are clear. Mild right periorbital soft tissue swelling. The calvar ium is intact. Vertebral arteries are calcified. IMPRESSION: No acute intracranial abnormality.
== END 2018-01-28 02:53 | disposition home or self-care (01) ==
LOC: ER 00:11
DX: S05.11XA Contusion of eyeball and orbital tissues, right eye, initial encounter (principal); W01.0XXA Fall on same level from slipping, tripping and stumbling without subsequent striking against object, initial encounter; Y93.01 Activity, walking, marching and hiking; Y92.019 Unspecified place in single-family (private) house as the place of occurrence of the external cause; S60.211A Contusion of right wrist, initial encounter; S50.01XA Contusion of right elbow, initial encounter; Z85.3 Personal history of malignant neoplasm of breast; F03.90 Unspecified dementia, unspecified severity, without behavioral disturbance, psychotic disturbance, mood disturbance, and anxiety; I10 Essential (primary) hypertension; K57.92 Diverticulitis of intestine, part unspecified, without perforation or abscess without bleeding; Z23 Encounter for immunization
CPT/HCPCS: 70450; 90714; 99284

== ENCOUNTER 2018-09-18 13:58 | Emergency (ER) | payer OTHER ==
--- OUTSIDE RECORDS SUMMARY | 2018-09-18 14:00 | XMS REPORT | Clinical Summary ---
:1935 Author Organization [facility] Address [address] [place] [address] Care Team Providers Name Role Phone Randy Flannery MD Primary Care Provider Allergies Active Allergy Reactions Severity Noted Date Comments Ciprofloxacin 12/07/2015 Codeine 12/07/2015 Penicillins 12/07/2015 Sulfa (Sulfonamide Antibiotics) 12/07/2015 Medications Medication Sig Dispensed Refills Start Date End Date Status lisinopril-hydrochlorot 0 09/25/2015 Active hiazide (PRINZIDE,ZESTORETIC) 20-12.5 mg per tablet aspirin 325 MG tablet Take 325 mg by 0 Active mouth. 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 Last Filed Vital Signs Not on file Plan of Treatment Health Maintenance Due Date Last Done Comments SHINGLES VACCINES (#1) 1987 65+ PNEUMOCOCCAL VACCINE (1 of 2 - PCV13) 2002 PNEUMOCOCCAL POLYSACCHARIDE VACCINE AGE 65 AND OVER 2002 INFLUENZA VACCINE 01/23/2018 Results Not on fileafter 09/17/2017 Insurance Payer Benefit Plan / Group Subscriber ID Type Phone Address UHC MEDICARE UHC MEDICARE HMO/PPO xxxxxxxxx HMO Advance Directives Patient has advance care planning documents on file. For more information, please contact:Marty Arnold[address] [place] [address]
--- OUTSIDE RECORDS SUMMARY | 2018-09-18 14:02 | XMS REPORT | Continuity of Care Document ---
:1935 Author Organization Interface Problems Problem Status Onset Classification Date Comments Source Date Reported PHYSICAL Active 09/19/19 Condition 11/24/2014 Medical EXAMINATION 14 Group OTHER ACCIDENTAL Active 01/30/20 Condition 11/24/2014 Medical FALL FROM ONE LEVEL 13 Group TO ANOTHER OSTEOARTHRITIS Active Condition 11/24/2014 Medical Group OSTEOPOROSIS Active Condition 11/24/2014 Medical Group HYPERLIPIDEMIA Active Condition 11/24/2014 Medical Group HYPERTENSION Active Condition 11/24/2014 Medical Group Dementia Active Finding 10/04/[address] [facility] [place] Diverticulitis Active Finding 10/04/[address] [facility] [place] Hiatal hernia with Active Finding 10/04/[address] [facility] [place] Nausea and vomiting Active Finding 10/04/[address] [facility] [place] Abdominal pain Active Finding 10/04/[address] [facility] [place] Hypertension Active Finding 10/04/[address] [facility] [place] Dehydration Active Finding 10/04/[address] [facility] [place] Gastroesophageal Active Finding 10/04/[address] [facility] [address] reflux disease with [facility] hiatal hernia [place] Medications Medication Details Route Status Patient Ordering Order Source Instructions Provider Date Pantoprazole DAILY AT Active Prezas [facility]30 018 [facility] [place] Metronidazole Q8H Active Prezas [facility] [place] Cefuroxime TWICE Active Prezas [facility] DAILY [facility]18 [facility] [place] Ondansetron Hcl THREE Active Prezas [facility] TIMES A 018 [facility] - DAY PRN [place] For Nausea / Vomiting Amlodipine DAILY Active Prezas [facility]18 [facility] [place] Aspirin DAILY Active [facility] [place] Donepezil AT BEDTIME Active [facility] [place] ANDER ALLERGY one time Active Medical TABS daily 015 Group DESOXIMETASONE twice Active Medical 0.25 % CREA daily 015 Group ANASTROZOLE 1 MG 1 tablet Active Medical TABS daily 014 Group LISINOPRIL-HYDROC 1 tab by Active Medical HLOROTHIAZIDE mouth 014 Group 20-12.5 MG TABS daily AMBIEN 5 MG TABS one hs Active Medical daily. 014 Group ANASTROZOLE 1 MG 1 tablet Active Medical TABS daily 014 Group LISINOPRIL-HYDROC 1 tab by Active Medical HLOROTHIAZIDE mouth 014 Group 20-12.5 MG TABS daily AMBIEN 5 MG TABS one hs Active Medical daily. 014 Group ALPRAZOLAM 0.5 MG 1 tab by No Medical TABS mouth Longer 013 Group daily as Active needed OMEPRAZOLE 20 MG 1 tab by No Medical TBEC mouth Longer 013 Group daily as Active needed ALPRAZOLAM 0.5 MG 1 tab by No Medical TABS mouth Longer 013 Group daily as Active needed ALPRAZOLAM 0.5 MG 1 tab by No Medical TABS mouth Longer 013 Group daily as Active needed OMEPRAZOLE 20 MG 1 tab by No Medical TBEC mouth Longer 013 Group daily as Active needed ANASTROZOLE 1 MG Active Medical TABS 013 Group AMLODIPINE-ATORVA 1 tab by No Medical STATIN 10-10 MG mouth Longer 013 Group TABS every Active other day AMLODIPINE-ATORVA 1 tab by No Medical STATIN 10-10 MG mouth Longer 013 Group TABS every Active other day LISINOPRIL-HYDROC 1 tab by Active Medical HLOROTHIAZIDE mouth Group 20-12.5 MG TABS daily ASPIRIN 325 MG 1 tab by Active Medical TABS mouth Group daily CO Q 10 100 MG 1 tab by Active Medical CAPS mouth Group daily ASPIRIN 325 MG 1 tab by Active Medical TABS mouth Group daily ASPIRIN 325 MG 1 tab by Active Medical TABS mouth Group daily Allergies, Adverse Reactions, Alerts Substance Category Reaction Severity Reaction Status Date Comments Source type Reported PCN Drug PCN MH allergy 3 Medical Group CIPRO Drug CIPRO MH allergy 3 Medical Group CODEINE Drug CODEINE MH allergy 3 Medical Group LORTAB Drug LORTAB MH allergy 3 Medical Group VICODIN Drug VICODIN MH allergy 3 Medical Group LIPITOR Drug LIPITOR MH allergy 3 Medical Group NIACIN Drug NIACIN MH allergy 3 Medical Group TRAMADOL HCL Drug TRAMADOL MH allergy HCL 3 Medical Group MORPHINE Drug MORPHINE MH allergy 3 Medical Group MEVACOR Drug MEVACOR MH allergy 3 Medical Group LOPID Drug LOPID MH allergy 3 Medical Group FOSAMAX Drug FOSAMAX MH allergy 3 Medical Group BACTRIM Drug BACTRIM MH allergy 3 Medical Group acetaminophen Itching Allergy to Active [facility] [place] ciprofloxacin Hives Allergy to Active [facility] Sub[facility] [place] codeine Hives/Rash Allergy to Active [facility] Sub[facility] [place] hydrocodone Itching Allergy to Active [facility] Sub[facility] 8 [facility] [place] lovastatin Shortness Allergy to Active [facility] Substance 8 [facility] [place] Penicillins Unknown Allergy to Active [facility] Sub[facility] 8 [facility] [place] sulfamethoxaz Hives Allergy to Active [facility] [place] Substance 8 [facility] [place] trimethoprim Hives Allergy to Active [facility] Sub[facility] 8 [facility] [place] Immunizations Immunization Date Given Site Status Last Updated Comments Source influenza 07/16/2007 completed Medical immunization (Flu Group Vax) has been administered Results Order Name Results Value Reference Date Interpretation Comments Source Range Laboratory Blood Blood 10/[address] [facility] [facility] Morphology Morphology [facility] Comment Comment [place] [facility] Total 0.5 mg/dL 0.3 - 1.2 10/04 [facility] Bilirubin [facility] [place] [facility] Sodium Level 138 mEq/L 135 - 145 10/[address] Studies /2018 [facility] [place] [facility] Serum Total 5.4 g/dL 6.0 - 8.3 10/04 [facility]. Studies Protein /2018 [facility] [place] [facility] Potassium 3.4 mEq/L 3.6 - 5.0 10/04 [facility]. Studies Level /2017 [facility] [place] Laboratory Magnesium 1.7 mg/dL 1.8 - 2.5 10/04 [facility]. Studies Level /2017 [facility] [place] Laboratory Glucose Level 95 mg/dL 65 - 120 10/[address] [facility] [address] Studies /2017 [facility] [place] Laboratory Globulin 2.3 g/dL 2.3 - 3.5 10/04 [facility]. Studies /2017 [facility] [place] Laboratory Estimat 56 mL/min 90 10/04 [facility]. Studies Glomerular /2017 [facility] Filtration [place] Rate Laboratory Creatinine 0.96 mg/dL 0.44 - 04 [facility]. Studies 1.00 /2017 [facility] [place] Laboratory Chloride 113 mEq/L 101 - 111 10/04 [facility]. Studies Level /2017 [facility] [place] Laboratory Carbon 22 mEq/L 21 - 31 10/04 [facility] Studies Dioxide Level /2017 [facility] [place] Laboratory Calcium Level 8.6 mg/dL 8.5 - 10.5 10/04 [facility]. Studies /2017 [facility] [place] Laboratory Blood Urea 9 mg/dL 6 - 20 10/04 [facility] Studies Nitrogen /2017 [facility] [place] Laboratory Aspartate 27 IU/L 10 - 42 10/04 [facility]. Studies Amino Transf /2017 [facility] (AST/SGOT) [place] Laboratory Alkaline 72 IU/L 42 - 121 10/04 [facility]. Studies Phosphatase /2017 [facility] [place] Laboratory Albumin/Globu 1.3 1.1 - 1.8 10/04 [facility]. Studies zara Ratio /2017 [facility] [place] Laboratory Albumin 3.1 g/dL 3.2 - 5.5 10/04 [facility]. Studies /2018 [facility] [place] Laboratory Alanine 15 IU/L 10 - 60 10/04 [facility]. Studies Aminotransfer /2017 [facility] ase [place] (ALT/SGPT) Laboratory White Blood 3.3 K/uL 4.3 - 10.9 10/[address] Studies Count /2017 [facility] [place] Laboratory Red Cell 13.3 % 12.1 - 10/04 [facility]. Studies Distribution 15.2 /2017 [facility] Width [place] Laboratory Red Blood 3.26 M/uL 3.86 - 10/04 [facility]. Studies Count 4.86 [facility] [place] Laboratory Platelet 172 K/uL 152 - 406 10/04 [facility]. Studies Count /2017 [facility] [place] Laboratory Neutrophils % 56.5 % 41.7 - [address] [facility] [address] Studies 73.7 /2017 [facility] [place] Laboratory Monocytes % 16.8 % 3.3 - 12.3 10/[address] [facility] [address] Studies /2017 [facility] [place] Laboratory Mean Platelet 6.8 fL 7.6 - 11.3 10/[address] [facility] [address] Studies Volume /2017 [facility] [place] Laboratory Mean 94.6 fL 80 - 100 10/04 [facility]. Studies Corpuscular /2017 [facility] Volume [place] Laboratory Mean 34.6 g/dL 32.0 - 10/04 [facility]. Studies Corpuscular 36.0 /2017 [facility] Hemoglobin [place] Concent Laboratory Mean 32.8 pg 27.0 - 10/04 [facility]. Studies Corpuscular 35.0 /2017 [facility] Hemoglobin [place] Laboratory Lymphocytes % 24.9 % 15.3 - 10/[address] [facility] [address] Studies 44.8 /2017 [facility] [place] Laboratory Hemoglobin 10.7 g/dL 12.0 - 10/04 [facility]. Studies 15.0 /2017 [facility] [place] Laboratory Hematocrit 30.8 % 36.0 - 10/[address] [facility] [address] Studies 45.0 /2017 [facility] [place] Laboratory Eosinophils % 1.3 % 0 - 4.4 10/[address] [facility] [address] Studies /2017 [facility] [place] Laboratory Basophils % 0.5 % 0 - 1.3 10/[address] [facility] [address] Studies /2018 [facility] [place] Laboratory Absolute 1.9 K/uL 1.8 - 8.0 10/04 [facility]. Studies Neutrophil /2017 [facility] [place] Laboratory Absolute 0.6 K/uL 0.1 - 1.3 10/04 [facility]. Studies Monocytes /2017 [facility] (CBC) [place] Laboratory Absolute 0.8 K/uL 0.7 - 4.9 10/[address] [facility] [address] Studies Lymphocytes /2017 [facility] (CBC) [place] Laboratory Absolute 0.0 K/uL 0 - 0.5 10/04 St[facility] Studies Eosinophils /2017 [facility] (CBC) [place] Laboratory Absolute 0.0 K/uL 0 - 0.5 10/04 [facility] [address] Studies Basophils /2017 [facility] (CBC) [place] Laboratory Amylase Level 197 U/L 28 - 100 10/02 St[facility] Studies [facility] [place] Laboratory Lipase 129 U/L 22 - 51 10/[address] [facility] [address] Studies /2017 [facility] [place] Laboratory Urine pH 6.0 10/02 [facility] [place] Laboratory Urine Total Urine Total 10/02 [facility]. Studies Protein Protein [facility] [place] [facility] Urine 1.015 10/02 [facility]. Studies Specific /2017 [facility] [place] Laboratory Urine Nitrite Urine 10/02 [facility]. Studies Nitrite [facility] [place] Laboratory Urine Urine 10/02 [facility]. Studies Leukocyte Leukocyte [facility] - Esterase Esterase [place] Laboratory Urine Ketones Urine 10/02 [facility]. Studies Ketones [facility] [place] Laboratory Urine Glucose Urine 10/02 [facility]. Studies Glucose [facility] [place] Laboratory Urine Blood Urine Blood 10/02 [facility]. Studies [facility] [place] Laboratory B-Type 79 pg/ml 10/02 [facility]. Studies Natriuretic [facility] Peptide [place] Laboratory Creatine 1.6 ng/ml 0.3 - 4.0 10/02 [facility]. Studies Kinase MB [facility] [place] Laboratory Direct 0.1 mg/dL 0 - 0.2 10/02 [facility]. Studies Bilirubin [facility] [place] Laboratory Creatine 62 IU/L 22 - 269 10/02 [facility]. Studies Kinase /2017 [facility] [place] Laboratory Prothrombin 11.1 9.5 - 12.5 10/02 [facility]. Studies Time SECONDS /2017 [facility] [place] Laboratory INR 0.94 10/02 [facility]. Studies International /2017 [facility] Normalized [place] Ratio Laboratory Activated 27.9 24.3 - 10/02 [facility]. Studies Partial SECONDS 36.9 [facility] Thromboplast [place] Time Laboratory Rapid null 10/[address] [facility] Studies Troponin I /2017 [facility] [place] Chemistry CHOLESTEROL 269 mg/dl - 199 11/24 Group Chemistry TRIGLYCERIDE 224 mg/dl - 149 11/24 Group Chemistry HDL 59 mg/dl >=61 11/24 Group Chemistry LDL 165 mg/dl - 99 11/24 Group Chemistry SODIUM 137 MEQ/L 135 - 145 11/24 [facility] mmol/L Group Chemistry POTASSIUM 4.5 MEQ/L 3.5 - 5.1 11/24 [facility] mmol/L Group Chemistry CREATININE 1.2 mg/dL 0.5 - 1.4 11/24 Group Chemistry BUN 28 mg/dL 7 - 22 11/24 Group Chemistry BUN/CREAT 23 6 - 25 11/24 Group Chemistry ALBUMIN 4.6 g/dL 3.5 - 5.0 11/24 Group Chemistry CALCIUM 9.9 mg/dL 8.5 - 10.5 11/24 Group Chemistry SGPT (ALT) 15 U/L 0 - 65 11/24 Group Chemistry SGOT (AST) 15 U/L 0 - 37 11/24 Group Chemistry ALK PHOS 123 U/L 39 - 136 11/24 Group Chemistry TSH 1.230 0.360 - 11/24 [facility] uIU/mL 3.740 /2014 Group Hematology HGB 12.6 g/dL 12.0 - 11/24 16.0 /2014 Group Hematology HCT 36.8 % 36.0 - 11/24 [facility] 48.0 /2014 Group Hematology PLATELETS 239 K/CMM 133 - 450 11/24 Group Chemistry CHOLESTEROL 292 mg/dl - 199 09/18 Group Chemistry TRIGLYCERIDE 260 mg/dl - 149 09/18 Group Chemistry HDL 50 mg/dl >=61 09/18 Group Chemistry SODIUM 140 MEQ/L 135 - 145 09/18 [facility] mmol/L Group Chemistry POTASSIUM 4.2 MEQ/L 3.5 - 5.1 09/18 [facility] mmol/L Group Chemistry CREATININE 1.2 mg/dL 0.5 - 1.4 09/18 [facility] Group Chemistry BUN 25 mg/dL 7 - 09/18 Group Chemistry BUN/CREAT 21 6 - 25 09/18 Group Chemistry ALBUMIN 4.8 g/dL 3.5 - 5.0 09/18 Group Chemistry CALCIUM 9.8 mg/dL 8.5 - 10.5 09/18 Group Chemistry SGPT (ALT) 17 U/L 0 - 65 09/18 Group Chemistry SGOT (AST) 18 U/L 0 - 37 09/18 Group Chemistry ALK PHOS 98 U/L 39 - 136 09/18 Group Chemistry TSH 1.300 0.360 - 09/18 [facility] uIU/mL 3.74 Group Chemistry CHOLESTEROL 292 mg/dl - 199 09/18 Group Chemistry TRIGLYCERIDE 260 mg/dl - 149 09/18 Group Chemistry HDL 50 mg/dl >=61 09/18 Group Chemistry LDL 190 mg/dl - 99 09/18 Group Chemistry SODIUM 140 MEQ/L 135 - 145 09/18 [facility] mmol/L Group Chemistry POTASSIUM 4.2 MEQ/L 3.5 - 5.1 09/18 [facility] mmol/L Group Chemistry CREATININE 1.2 mg/dL 0.5 - 1.4 09/18 Group Chemistry BUN 25 mg/dL 7 - 09/18 Group Chemistry BUN/CREAT 21 6 - 25 09/18 Group Chemistry ALBUMIN 4.8 g/dL 3.5 - 5.0 09/18 Group Chemistry CALCIUM 9.8 mg/dL 8.5 - 10.5 09/18 Group Chemistry SGPT (ALT) 17 U/L 0 - 65 09/18 Group Chemistry SGOT (AST) 18 U/L 0 - 37 09/18 Group Chemistry ALK PHOS 98 U/L 39 - 136 09/18 Group Chemistry TSH 1.300 0.360 - 09/18 [facility] uIU/mL 3.740 Group Chemistry CHOLESTEROL 292 mg/dl - 199 09/18 Group Chemistry TRIGLYCERIDE 260 mg/dl - 149 09/18 Group Chemistry HDL 50 mg/dl >=61 09/18 Group Chemistry LDL 190 mg/dl - 99 09/18 Group Chemistry SODIUM 140 MEQ/L 135 - 145 09/18 [facility] mmolL Group Chemistry POTASSIUM 4.2 MEQ/L 3.5 - 5.1 09/18 [facility] mmolL Group Chemistry CREATININE 1.2 mg/dL 0.5 - 1.4 09/18 Group Chemistry BUN 25 mg/dL 7 - 22 09/18 Group Chemistry BUN/CREAT 21 6 - 25 09/18 Group Chemistry ALBUMIN 4.8 g/dL 3.5 - 5.0 09/18 Group Chemistry CALCIUM 9.8 mg/dL 8.5 - 10.5 09/18 Group Chemistry SGPT (ALT) 17 U/L 0 - 65 09/18 Group Chemistry SGOT (AST) 18 U/L 0 - 37 09/18 Group Chemistry ALK PHOS 98 U/L 39 - 136 09/18 Group Chemistry TSH 1.300 0.360 - 09/18 [facility] uIU/mL 3.740 /2013 Group Chemistry SGOT (AST) 18 U/L 0 - 37 09/18 Group Chemistry ALK PHOS 98 U/L 39 - 136 09/18 Group Chemistry TSH 1.300 0.360 - 09/18 [facility] uIU/mL 3.740 /2013 Group Hematology HGB 13.4 g/dL 12.0 - 09/18 Medical Group Hematology HCT 39.6 % 36.0 - 09/18 Medical . Group Hematology PLATELETS 226 K/CMM 133 - 450 09/18 /mm3 Group Hematology HGB 13.4 g/dL 12.0 - 09/18 Medical Group Hematology HCT 39.6 % 36.0 - 09/18 Medical 48. Group Hematology PLATELETS 226 K/CMM 133 - 450 09/18 /mm3 Group Hematology HGB 13.4 g/dL 12.0 - 09/18 Group Hematology HCT 39.6 % 36.0 - 09/18 Medical 48.0 /2013 Group Hematology PLATELETS 226 K/CMM 133 - 450 09/18 Medical / Group [employer] PAP SMEAR Done 10/27 Medical Group [employer] PAP SMEAR Done 10/27 Medical Group [employer] PAP SMEAR Done 10/27 Group [employer] PAP SMEAR Done 10/27 Group [employer] PAP SMEAR Done 10/27 Medical Group [employer] PAP SMEAR Done 10/27 Group Vital Signs Vital Sign Value Date Comments Source Temperature Oral (F) 98.6 F 10/04/[address] [facility] [place] Heart Rate 65 10/04/[address] [facility] [place] Respitory Rate 18 10/04/[address] [facility] [place] Systolic (mm Hg) 154 10/04/[address] [facility] [place] Diastolic (mm Hg) 67 10/04/[address] [facility] [place] Weight 139 10/04/[address] [facility] [place] Height 66 10/02/[address] [facility] [place] Height 65 11/24/2014 Medical Group Weight 151 11/24/2014 Medical Group Temperature Oral (F) 97.5 F 11/24/2014 Medical Group Heart Rate 72 11/24/2014 Medical Group Systolic (mm Hg) 167 11/24/2014 Medical Group Diastolic (mm Hg) 83 11/24/2014 Medical Group Height 65 09/18/2013 Medical Group Weight 152 09/18/2013 Medical Group Temperature Oral (F) 97.4 F 09/18/2013 Medical Group Heart Rate 76 09/18/2013 Medical Group Systolic (mm Hg) 150 09/18/2013 Medical Group Diastolic (mm Hg) 86 09/18/2013 Medical Group Weight 152 01/29/2013 Medical Group Temperature Oral (F) 97.4 F 01/29/2013 Medical Group Heart Rate 82 01/29/2013 Medical Group Systolic (mm Hg) 156 01/29/2013 Medical Group Diastolic (mm Hg) 80 01/29/2013 Medical Group Weight 149 12/30/2012 Medical Group Temperature Oral (F) 97.2 F 12/30/2012 Medical Group Systolic (mm Hg) 140 12/30/2012 Medical Group Diastolic (mm Hg) 80 12/30/2012 Medical Group Heart Rate 80 12/30/2012 Medical Group Encounters Location Location Encounter Encounter Reason Attending ADM DC Status Source Details Type Number For Provider Date Date Visit [facility] [id number] [place] 01/29 01/29 Ruby Visit [address] [facility], Medical Medical MD Group Group [facility] Office [id number] [place] 09/18 09/18 Michael Visit [address] [facility], Medical Medical MD Group Group [facility] Lab Report [id number] El 09/18 09/18 Michael [address] [facility], Medical Medical MD Group Group [facility] Office [id number] El 11/24 11/24 Michael Visit [address] [facility], Medical Medical MD Group Group [facility] Departed [id number] 08/29 08/[address] [facility]2017 [facility] [place] [facility] [facility] [id number] 10/02 10/[address] [facility] In[facility]2017 [facility] [place] Procedures Procedure Code Date Perfomer Comments Source Clostridium [facility] difficile Toxin 8 - [place] Assay [id number] [facility] - [place] Count [id number] [facility] - [place] Abdomen & Pelvis [id number] [facility] W Contrast 8 - [place] Chest Single [id number] [facility] View 8 - [place] Head Brain Wo [id number] [facility] Cont 8 [facility] [place] Chest Single [id number] [facility] View 8 - [place] mammogram 76303 Complete Medical 3 Group vaginal Pap 99142 Done Medical smear results 1 Group vaginal Pap 60469 Done Medical smear results 1 Group colonoscopy 18572 Complete Medical 2 Group colonoscopy 02668 Done Medical 2 Group colonoscopy 62657 Done Medical 2 Group bone density 4002.65 Done Medical 2 Group bone density 4002.65 Done Medical 2 Group
--- OUTSIDE RECORDS SUMMARY | 2018-09-18 14:03 | XMS REPORT | Continuity of Care Document ---
:1935 Author Organization [facility] Care Team Providers Name Role Phone MD Enoch, El Unavailable Unavailable Insurance Providers Payer name Policy type / Policy ID Covered alliance party ID Policy [place] Coverage type [place]IC[place]: [employer] A[employer] HE[employer]CARE OPTIONS (MEDICARE SUPPLEMENT [employer] (INDEMNITY) A[employer] HEALTHCARE OPTIONS (MEDICARE SUPPLEMENT [place] [facility] [place] Encounters Encounter Performer Location Date Office Visit El Kendall MD [facility] Jan 29, 2013 Allergies, Adverse Reactions, Alerts Type Substance Reaction Status Drug allergy PCN Active Drug allergy CIPRO Active Drug allergy CODEINE Active Drug allergy LORTAB Active Drug allergy VICODIN Active Drug allergy LIPITOR Active Drug allergy NIACIN Active Drug allergy TRAMADOL HCL Active Drug allergy MORPHINE Active Drug allergy MEVACOR Active Drug allergy LOPID Active Drug allergy FOSAMAX Active Drug allergy BACTRIM Active Problems Problem Effective Dates Problem Status OSTEOARTHRITIS Active OSTEOPOROSIS Active HYPERLIPIDEMIA Active HYPERTENSION Active OTHER ACCIDENTAL FALL FROM ONE LEVEL TO ANOTHER Jan 29, 2013 Active Procedures Date Description Comments October 27, 2010 vaginal Pap smear results Done Sep 09, 2001 bone density Done Sep 12, 2001 colonoscopy Done October 27, 2010 vaginal Pap smear results Done Sep 09, 2001 bone density Done Sep 12, 2001 colonoscopy Done October 25, 2001 colonoscopy Complete Dec 30, 2012 smoking status never smoker Jan 29, 2013 smoking status never smoker Medications Medication Instructions Start Date Status LISINOPRIL-HYDROCHLOROTHIAZIDE 1 tab by mouth daily Active 20-12.5 MG TABS ASPIRIN 325 MG TABS 1 tab by mouth daily Active CO Q 10 100 MG CAPS 1 tab by mouth daily Active AMLODIPINE-ATORVASTATIN 10-10 MG 1 tab by mouth every other day Jul 31, 2012 Inactive TABS ANASTROZOLE 1 MG TABS Dec 30, 2012 Active ALPRAZOLAM 0.5 MG TABS 1 tab by mouth daily as needed Inactive OMEPRAZOLE 20 MG TBEC 1 tab by mouth daily as needed Inactive Immunizations Vaccine Date Status influenza immunization (Flu Vax) has been administered Jul 16, 2007 completed Vital Signs Date Description Test Result Dec 30, 2012 weight E&M - 3141-9 WEIGHT 149 lb Dec 30, 2012 temperature E&M TEMPERATURE 97.2 deg f Dec 30, 2012 blood pressure, systolic - 8480-6 BP SYSTOLIC 140 mm Hg Dec 30, 2012 blood pressure, diastolic - 8462-4 BP DIASTOLIC 80 mm Hg Dec 30, 2012 pulse rate E&M - 8867-4 PULSE RATE 80 /min Jan 29, 2013 weight E&M - 3141-9 WEIGHT 152 lb Jan 29, 2013 temperature E&M TEMPERATURE 97.4 deg f Jan 29, 2013 pulse rate E&M - 8867-4 PULSE RATE 82 /min Jan 29, 2013 blood pressure, systolic - 8480-6 BP SYSTOLIC 156 mm Hg Jan 29, 2013 blood pressure, diastolic - 8462-4 BP DIASTOLIC 80 mm Hg Results Date Description Test Name Value Reference Interpretation Status October 27, 2010 vaginal Pap smear PAP SMEAR Done null results October 27, 2010 vaginal Pap smear PAP SMEAR Done null results
--- OUTSIDE RECORDS SUMMARY | 2018-09-18 14:03 | XMS REPORT | Continuity of Care Document ---
:1935 Author Organization [facility] Care Team Providers Name Role Phone MD Enoch, El Unavailable Unavailable Insurance Providers Payer name Policy type / Policy ID Covered alliance party ID Policy [place] Coverage type [place] [employer] AARP HEALTHCARE OPTIONS (MEDICARE SUPPLEMENT UNITED HEALTHCARE (INDEMNITY) AARP HEALTHCARE OPTIONS (MEDICARE SUPPLEMENT [place]: [place] AARP HEALTHCARE OPTIONS (MEDICARE SUPPLEMENT Encounters Encounter Performer Location Date Lab Report El Kendall MD [facility] Sep 18, 2013 Allergies, Adverse Reactions, Alerts Type Substance [...] LEVEL TO ANOTHER Jan 29, 2013 Active PHYSICAL EXAMINATION Sep 18, 2013 Active Procedures Date Description Comments October 27, 2010 vaginal Pap smear results Done Sep 09, 2001 bone density Done Sep 12, 2001 colonoscopy Done October 27, 2010 vaginal Pap smear results Done Sep 09, 2001 bone density Done Sep 12, 2001 colonoscopy Done October 25, 2001 colonoscopy Complete Dec 30, 2012 smoking status never smoker Jan 29, 2013 smoking status never smoker Aug 23, 2012 mammogram Complete Medications Medication Instructions Start Date Status ASPIRIN 325 MG TABS 1 tab by mouth daily Active CO Q 10 100 MG CAPS 1 tab by mouth daily Active AMLODIPINE-ATORVASTATIN 10-10 MG 1 tab by mouth every other day Jul 31, 2012 Inactive TABS ALPRAZOLAM 0.5 MG TABS 1 tab by mouth daily as needed Inactive OMEPRAZOLE 20 MG TBEC 1 tab by mouth daily as needed Inactive ANASTROZOLE 1 MG TABS 1 tablet daily Sep 18, 2013 Active LISINOPRIL-HYDROCHLOROTHIAZIDE 1 tab by mouth daily Sep 18, 2013 Active 20-12.5 MG TABS AMBIEN 5 MG TABS one hs daily. Sep 18, 2013 Active Immunizations Vaccine Date Status influenza immunization (Flu [...] - 8462-4 BP DIASTOLIC 80 mm Hg Sep 18, 2013 height E&M - 8302-2 HEIGHT 65 in Sep 18, 2013 weight E&M - 3141-9 WEIGHT 152 lb Sep 18, 2013 temperature E&M TEMPERATURE 97.4 deg f Sep 18, 2013 pulse rate E&M - 8867-4 PULSE RATE 76 /min Sep 18, 2013 blood pressure, systolic - 8480-6 BP SYSTOLIC 150 mm Hg Sep 18, 2013 blood pressure, diastolic - 8462-4 BP DIASTOLIC 86 mm Hg Results Date Description Test Name Value Reference Interpretation Status Sep 18, hemoglobin, blood HGB 13.4 g/dL 12.0-16.0 2013Sep 18, hematocrit, blood HCT 39.6 % 36.0-48.0 2013Sep 18, platelet count PLATELETS 226 K/CMM 532-504 0498 /mm3 Sep 18, hemoglobin, blood HGB 13.4 g/dL 12.0-16.0 2013Sep 18, hematocrit, blood HCT 39.6 % 36.0-48.0 2013Sep 18, platelet count PLATELETS 226 K/CMM 737-712 1045 /mm3 Sep 18, hemoglobin, blood HGB 13.4 g/dL 12.0-16.0 2013Sep 18, hematocrit, blood HCT 39.6 % 36.0-48.0 2013Sep 18, platelet count PLATELETS 226 K/CMM 594-534 2623 /mm3 Sep 18, cholesterol, serum CHOLESTEROL 292 mg/dl <=199 High 2013Sep 18, triglyceride, serum, TRIGLYCERIDE 260 mg/dl <=149 High 2013 fasting Sep 18, HDL cholesterol, HDL 50 mg/dl >=61 Low 2013Sep 18, sodium, serum SODIUM 140 MEQ/L [phone] mmol/L Sep 18, potassium, serum POTASSIUM 4.2 MEQ/L 3.5-5.1 2013 mmol/L Sep 18, creatinine, serum CREATININE 1.2 mg/dL 0.5-1.4 2013Sep 18, urea nitrogen, blood BUN 25 mg/dL - High 2013Sep 18, urea BUN/CREAT 21 null 6-2013 nitrogen/creatinine ratio, serum Sep 18, albumin, serum ALBUMIN 4.8 g/dL 3.5-5.0 2013Sep 18, calcium, serum CALCIUM 9.8 mg/dL 8.5-10.5 2013Sep 18, alanine SGPT (ALT) 17 U/L 0-65 2013 aminotransferase (SGPT), serum Sep 18, aspartate SGOT (AST) 18 U/L 0-37 2013 aminotransferase (SGOT), serum Sep 18, alkaline ALK PHOS 98 U/L 39-136 2013 phosphatase, serum Sep 18, thyroid stimulating TSH 1.300 0.360-3.740 2013 hormone, serum uIU/mL Sep 18, cholesterol, serum CHOLESTEROL 292 mg/dl <=199 High 2013Sep 18, triglyceride, serum, TRIGLYCERIDE 260 mg/dl <=149 High 2013 fasting Sep 18, HDL cholesterol, HDL 50 mg/dl >=61 Low 2013Sep 18, LDL cholesterol, LDL 190 mg/dl <=99 High 2013 serum Sep 18, sodium, serum SODIUM 140 MEQ/L [phone] mmol/L Sep 18, potassium, serum POTASSIUM 4.2 MEQ/L 3.5-5.1 2013 mmol/L Sep 18, creatinine, serum CREATININE 1.2 mg/dL 0.5-1.4 2013Sep 18, urea nitrogen, blood BUN 25 mg/dL - High 2013Sep 18, urea BUN/CREAT 21 null 6-2013 nitrogen/creatinine ratio, serum Sep 18, albumin, serum ALBUMIN 4.8 g/dL 3.5-5.0 2013Sep 18, calcium, serum CALCIUM 9.8 mg/dL 8.5-10.5 2013Sep 18, alanine SGPT (ALT) 17 U/L 0-65 2013 aminotransferase (SGPT), serum Sep 18, aspartate SGOT (AST) 18 U/L 0-37 2013 aminotransferase (SGOT), serum Sep 18, alkaline ALK PHOS 98 U/L 39-136 2013 phosphatase, serum Sep 18, thyroid stimulating TSH 1.300 0.360-3.740 2013 hormone, serum uIU/mL Sep 18, cholesterol, serum CHOLESTEROL 292 mg/dl <=199 High 2013Sep 18, triglyceride, serum, TRIGLYCERIDE 260 mg/dl <=149 High 2013 fasting Sep 18, HDL cholesterol, HDL 50 mg/dl >=61 Low 2013 serum Sep 18, LDL cholesterol, LDL 190 mg/dl <=99 High 2013 serum Sep 18, sodium, serum SODIUM 140 MEQ/L [phone] mmol/L Sep 18, potassium, serum POTASSIUM 4.2 MEQ/L 3.5-5.1 2013 mmol/L Sep 18, creatinine, serum CREATININE 1.2 mg/dL 0.5-1.4 2013Sep 18, urea nitrogen, blood BUN 25 mg/dL 7-22 High 2013Sep 18, urea BUN/CREAT 21 null 6-25 2013 nitrogen/creatinine ratio, serum Sep 18, albumin, serum ALBUMIN 4.8 g/dL 3.5-5.0 2013Sep 18, calcium, serum CALCIUM 9.8 mg/dL 8.5-10.5 2013Sep 18, alanine SGPT (ALT) 17 U/L 0-65 2013 aminotransferase (SGPT), serum Sep 18, aspartate SGOT (AST) 18 U/L 0-37 2013 aminotransferase (SGOT), serum Sep 18, alkaline ALK PHOS 98 U/L 39-136 2013 phosphatase, serum Sep 18, thyroid stimulating TSH 1.300 0.360-3.740 2014 hormone, serum uIU/mL October 27, vaginal Pap smear PAP SMEAR Done null 2010 results October 27, vaginal Pap smear PAP SMEAR Done null 2010 results
--- OUTSIDE RECORDS SUMMARY | 2018-09-18 14:03 | XMS REPORT | Continuity of Care Document ---
:1935 Author Organization [facility] Care Team Providers Name Role Phone MD Enoch, El Unavailable Unavailable Insurance Providers Payer name Policy type / Policy ID Covered republican ID Policy Parks Coverage type [place]: [place] [employer] AARP HEALTHCARE OPTIONS (MEDICARE SUPPLEMENT UNITED HEALTHCARE (INDEMNITY) AARP HEALTHCARE OPTIONS (MEDICARE SUPPLEMENT [place]: [place] AARP HEALTHCARE OPTIONS (MEDICARE SUPPLEMENT Encounters Encounter Performer Location Date Office Visit El Kendall MD [facility] Sep 18, 2013 Allergies, Adverse Reactions, Alerts [...]
--- OUTSIDE RECORDS SUMMARY | 2018-09-18 14:03 | XMS REPORT | Continuity of Care Document ---
:[address] [facility] Care Team Providers Name Role Phone MD Enoch, El Unavailable Unavailable Insurance Providers Payer name Policy type / Policy ID Covered republican ID Policy Parks Coverage type [place]: [place] [employer] AARP HEALTHCARE OPTIONS (MEDICARE SUPPLEMENT UNITED HEALTHCARE (INDEMNITY) AARP HEALTHCARE OPTIONS (MEDICARE SUPPLEMENT MED[place]: [place]: [place] [employer] AARP HEALTHCARE OPTIONS (MEDICARE SUPPLEMENT AARP HEALTHCARE OPTIONS (MEDICARE SUPPLEMENT Encounters Encounter Performer Location Date Office Visit El Kendall MD [facility] Nov 24, 2014 Allergies, Adverse Reactions, Alerts Type Substance Reaction [...] never smoker Aug 23, 2012 mammogram Complete Nov 24, 2014 smoking status Never smoker Medications Medication Instructions Start Date Status ASPIRIN [...] one hs daily. Sep 18, 2013 Active ANDER ALLERGY TABS one time daily Nov 24, 2014 Active DESOXIMETASONE 0.25 % CREA twice daily Nov 24, 2014 Active Immunizations Vaccine Date Status influenza immunization [...] - 8462-4 BP DIASTOLIC 86 mm Hg Nov 24, 2014 height E&M - 8302-2 HEIGHT 65 in Nov 24, 2014 weight E&M - 3141-9 WEIGHT 151 lb Nov 24, 2014 temperature E&M TEMPERATURE 97.5 deg f Nov 24, 2014 pulse rate E&M - 8867-4 PULSE RATE 72 /min Nov 24, 2014 blood pressure, systolic - 8480-6 BP SYSTOLIC 167 mm Hg Nov 24, 2014 blood pressure, diastolic - 8462-4 BP DIASTOLIC 83 mm Hg Results Date Description Test Name Value Reference Interpretation Status Sep 18, hemoglobin, blood HGB 13.4 g/dL 12.0-16.0 2014 Mar 27, hematocrit, blood HCT 39.6 % 36.0-48.0 2013Sep 18, platelet count PLATELETS 226 K/CMM 029-119 8851 /mm3 Sep 18, hemoglobin, blood HGB 13.4 g/dL 12.0-16.0 2013Sep 18, hematocrit, blood HCT 39.6 % 36.0-48.0 2013Sep 18, platelet count PLATELETS 226 K/CMM 289-799 2278 /mm3 Sep 18, hemoglobin, blood HGB 13.4 g/dL 12.0-16.0 2013Sep 18, hematocrit, blood HCT 39.6 % 36.0-48.0 2013Sep 18, platelet count PLATELETS 226 K/CMM 460-358 1371 /mm3 Sep 18, cholesterol, serum CHOLESTEROL 292 mg/dl <=199 High 2013Sep 18, triglyceride, serum, TRIGLYCERIDE 260 mg/dl <=149 High 2013Sep 18, HDL cholesterol, HDL 50 mg/dl >=61 Low 2013 serum Sep 18, sodium, serum SODIUM 140 MEQ/L [phone] mmol/L Sep 18, potassium, serum POTASSIUM 4.2 MEQ/L 3.5-5.1 2013 mmol/L Sep 18, creatinine, serum CREATININE 1.2 mg/dL 0.5-1.4 2013Sep 18, urea nitrogen, blood BUN 25 mg/dL 7-22 High 2013Sep 18, urea BUN/CREAT 21 null 6-25 2014 nitrogen/creatinine ratio, serum Sep 18, albumin, serum [...] Sep 18, sodium, serum SODIUM 140 MEQ/L 302-551 7978 mmol/L Sep 18, potassium, serum POTASSIUM 4.2 MEQ/L 3.5-5.1 2013 mmol/L Sep 18, creatinine, serum CREATININE 1.2 mg/dL 0.5-1.4 2013Sep 18, urea nitrogen, blood BUN 25 mg/dL 7- High 2013Sep 18, urea BUN/CREAT 21 null [...] LDL cholesterol, LDL 190 mg/dl <=99 High 2013Sep 18, sodium, serum SODIUM 140 MEQ/L [phone] mmol/L Sep 18, potassium, serum POTASSIUM 4.2 [...] 27, vaginal Pap smear PAP SMEAR Done 2010 results
--- OUTSIDE RECORDS SUMMARY | 2018-09-18 14:03 | XMS REPORT | Continuity of Care Document ---
:1935 Author Organization [facility] Care Team Providers Name Role [...] Location Date Office Visit El Kendall MD [facility] Nov 24, 2014 Allergies, Adverse Reactions, Alerts [...] 2013Sep 18, platelet count PLATELETS 226 K/CMM [phone] /mm3 Sep 18, hemoglobin, blood HGB 13.4 g/dL 12.0-16.0 2013Sep 18, hematocrit, blood HCT 39.6 % 36.0-48.0 2013Sep 18, platelet count PLATELETS 226 K/CMM 599-910 2237 /mm3 Sep 18, hemoglobin, blood HGB 13.4 g/dL 12.0-16.0 2013Sep 18, hematocrit, blood HCT 39.6 % 36.0-48.0 2013Sep 18, platelet count PLATELETS 226 K/CMM 179-020 7410 /mm3 Nov 24, hemoglobin, blood HGB 12.6 g/dL 12.0-16.0 2014Nov 24, hematocrit, blood HCT 36.8 % 36.0-48.0 2014Nov 24, platelet count PLATELETS 239 K/CMM 210-817 0487 /mm3 Sep 18, cholesterol, serum CHOLESTEROL 292 mg/dl <=199 High 2013Sep 18, triglyceride, serum, TRIGLYCERIDE 260 mg/dl <=149 High 2013 fasting Sep 18, HDL cholesterol, HDL 50 mg/dl >=61 Low 2013 serum Sep 18, sodium, serum SODIUM 140 MEQ/L [phone] mmol/L Sep 18, potassium, serum POTASSIUM 4.2 [...] TSH 1.300 0.360-3.740 2014 hormone, serum uIU/mL Sep 18, cholesterol, serum CHOLESTEROL 292 mg/dl <=199 High 2013Sep 18, triglyceride, serum, TRIGLYCERIDE 260 mg/dl <=149 High 2013 fasting Sep 18, HDL cholesterol, HDL 50 mg/dl >=61 Low 2013Sep 18, LDL cholesterol, LDL 190 mg/dl <=99 High 2013 serum Sep 18, sodium, serum SODIUM 140 MEQ/L [phone] mmol/L Sep 18, potassium, serum POTASSIUM 4.2 MEQ/L 3.5-5.1 2013 mmol/L Sep 18, creatinine, serum CREATININE 1.2 mg/dL 0.5-1.4 2013Sep 18, urea nitrogen, blood BUN 25 mg/dL - High 2013Sep 18, urea BUN/CREAT 21 null -2013 nitrogen/creatinine ratio, serum Sep 18, albumin, serum [...] 2013Sep 18, sodium, serum SODIUM 140 MEQ/L 061-259 4392 mmol/L Sep 18, potassium, serum POTASSIUM 4.2 [...] TSH 1.300 0.360-3.740 2013 hormone, serum uIU/mL Nov 24, cholesterol, serum CHOLESTEROL 269 mg/dl <=199 High 2014Nov 24, triglyceride, serum, TRIGLYCERIDE 224 mg/dl <=149 High 2014 fasting Nov 24, HDL cholesterol, HDL 59 mg/dl >=61 Low 2014Nov 24, LDL cholesterol, LDL 165 mg/dl <=99 High 2014Nov 24, sodium, serum SODIUM 137 MEQ/L 064-129 9174 mmol/L Nov 24, potassium, serum POTASSIUM 4.5 MEQ/L 3.5-5.1 2014 mmol/L Nov 24, creatinine, serum CREATININE 1.2 mg/dL 0.5-1.4 2014Nov 24, urea nitrogen, blood BUN 28 mg/dL 7-22 High 2014Nov 24, urea BUN/CREAT 23 null 6-25 2014 nitrogen/creatinine ratio, serum Nov 24, albumin, serum ALBUMIN 4.6 g/dL 3.5-5.0 2014Nov 24, calcium, serum CALCIUM 9.9 mg/dL 8.5-10.5 2014Nov 24, alanine SGPT (ALT) 15 U/L 0-65 2014 aminotransferase (SGPT), serum Nov 24, aspartate SGOT (AST) 15 U/L 0-37 2014 aminotransferase (SGOT), serum Nov 24, alkaline ALK PHOS 123 U/L 39-136 2014 phosphatase, serum Nov 24, thyroid stimulating TSH 1.230 0.360-3.740 2015 hormone, serum uIU/mL October 27, vaginal Pap smear PAP SMEAR Done null 2010 results October 27, vaginal Pap smear PAP SMEAR Done null 2010 results
--- NOTE | 2018-09-18 14:25 | RAD REPORT ---
EXAM DESCRIPTION: CT - Ct Stroke Brain Wo Cont - 09/18/2018 2:15 pm CLINICAL HISTORY: Stroke protocol, blurred vision CLINICAL HISTORY: January 2018 CT head TECHNIQUE: Axial 5 millimeter thick images of the head were obtained without IV contrast. All CT scans are performed using dose optimization technique as appropriate and may include automated exposure control or mA/KV adjustment according to patient size. FINDINGS: No intracranial hemorrhage, mass, or cerebral edema. No acute cortical based infarction id entified. No cortical edema or sulcal effacement. Moderate severity atrophy and chronic ischemic magana ges are present. Ventricular size is in proportion to volume loss. Arterial and physiologic calcifica tions are present. Us matter-white matter differentiation is preserved. Visualized portions of the mastoid air cells, paranasal sinuses, and orbits are unremarkable. Findings telephoned to Kane Trujillo in emergency department 2:21 p.m. IMPRESSION: No CT evidence of acute intracranial process. Moderate severity atrophy and chronic ischemic change similar to comparison.
[2018-09-18 14:36] LABS: Absolute Lymphocytes (CBC) 1.7 K/uL (0.7-4.9); Absolute Monocytes 0.5 K/uL (0.1-1.3); Hematocrit 40.5 % (36.0-45.0); Lymphocytes % 27.2 % (15.3-44.8); MPV 7.3 fL (7.6-11.3); Monocytes % 7.3 % (3.3-12.3); RBC Red Blood Cell Count 4.14 M/uL (3.86-4.86)
[2018-09-18 14:40] LABS: Protime INR 1.01
[2018-09-18 14:48] LABS: ALT/SGPT 14 U/L (12-78); AST/SGOT 16 U/L (15-37); Albumin 4.3 g/dL (3.4-5.0); Alkaline Phosphatase 107 U/L (45-117); BUN Blood Urea Nitrogen 22 mg/dL (7-18); Bicarbonate 27 mmol/L (21-32); Bilirubin Direct 0.2 mg/dL (0-0.2); Bilirubin Total 1.4 mg/dL (0.2-1.0); Glucose Level 95 mg/dL (74-106); Potassium 4.5 mmol/L (3.5-5.1); Protein, Total 8.2 g/dL (6.4-8.2); Sodium Level 143 mmol/L (136-145); Troponin (Emerg Dept Use Only) < 0.02 ng/mL (0.0-0.045)
[2018-09-18] MEDS ORDERED: NA CHLORIDE 0.9% 500 ML ONE (15:10)
[2018-09-18] MEDS ORDERED: ASPIRIN 81 MG CHEWABLE TABLET ONE (15:10)
--- NOTE | 2018-09-18 15:40 | RAD REPORT ---
EXAM DESCRIPTION: RAD - Chest Single View - 09/18/2018 2:46 pm CLINICAL HISTORY: Stroke protocol chest film COMPARISON: September 2017 TECHNIQUE: AP portable chest image was obtained 1442 hours . FINDINGS: Lungs are fibrotic with a pattern similar to comparison. No superimposed failure, infiltra te or mass. Heart and vasculature are normal. No measurable pleural effusion and no pneumothorax. Bon y degenerative changes are present most notable at the right shoulder. No acute findings seen. No acu te aortic findings suspected. IMPRESSION: Fibrotic lung pattern with no acute cardiopulmonary finding. No significant interval change.
--- NOTE | 2018-09-18 16:11 | RAD REPORT ---
EXAM DESCRIPTION: MRI - Brain Wo Cont - 09/18/2018 3:58 pm CLINICAL HISTORY: Double vision COMPARISON: September 18, [address] TECHNIQUE: Axial, sagittal, and coronal magnetic images of the brain were obtained. Contrast was not requested FINDINGS: Mild signal within periventricular, deep and subcortical white matter likely ischemic magana ges secondary to small vessel disease. . Diffusion-weighted/ADC mapping does not reveal evidence of acute infarction. The ventricles are normal caliber. An extra-axial fluid collection is not present The sinuses and mastoids are clear. IMPRESSION: No acute abnormality is displayed
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
--- NOTE | 2018-09-18 16:43 | ER ---
Nurse's Notes [facility] Name: Marta Butterfield Age: 83 yrs Sex: Female : 1935 Arrival Date: 09/18/2018 Time: 13:59 Bed 6 Private MD: Unknown, Unknown Diagnosis: Acute Transient Diplpia Presentation: 09/18 14:01 Transition of care: patient was not received from another setting of care. An acute sv neurological deficit is present. The patient has been moved to a treatment area. Pre-hospital glucose is not applicable to this patient. Onset of symptoms was September 18, 2018 at 13:50. Care prior to arrival: None. 14:01 Method Of Arrival: Wheelchair sv 14:01 Acuity: SANTI 2 sv 14:01 Presenting complaint: Patient states: double vision started about 20-30 mins while sv driving to see her eye doctor because of it and they sent her over here. c/o confusion, shakiness, "brain tingling all over", occipital headache. Reports she also took a Xanax about 1.5 hr ago because she recently had someone close pass away. 14:35 Risk Assessment: Do you want to hurt yourself or someone else? Patient reports no hb desire to harm self or others. 14:35 Initial Sepsis Screen: Does the patient meet any 2 criteria? No. Patient's initial hb sepsis screen is negative. Does the patient have a suspected source of infection? No. Patient's initial sepsis screen is negative. Stroke Activation: Symptom onset < 3 hours Physician: Stroke Attending; Name: ; Notified At: ; Arrived At: Physician: Chief Stroke Resident; Name: ; Notified At: ; Arrived At: Physician: Stroke Resident; Name: ; Notified At: ; Arrived At: Physician: ED Attending; Name: Dr King; Notified At: 14:07; Arrived At: 14:15 Physician: ED Resident; Name: ; Notified At: ; Arrived At: Historical: - Allergies: 14:12 Bactrim; sv 14:12 Ciprofloxacin; sv 14:12 Codeine; sv 14:12 Fosamax; sv 14:12 general anesthesia; sv 14:12 Lipitor; sv 14:12 Lortab; sv 14:12 Mevacor; sv 14:12 Morphine; sv 14:12 Multiple Allergies List Not Available; sv 14:12 Niacin; sv 14:12 pain medicine; sv 14:12 PENICILLINS; sv 14:12 tramadol; sv 14:12 Vicodin; sv - PMHx: 14:12 breast cancer; Dementia; Diverticulitis; Hypertension; sv - PSHx: 14:12 Heart stents; Left partial mastectomy; right arm sx; bryan knee sx; sv - Immunization history:: Adult Immunizations up to date. - Social history:: Smoking status: Patient/guardian denies using tobacco. - Ebola Screening: : No symptoms or risks identified at this time. - Family history:: not pertinent. - Hospitalizations: : No recent hospitalization is reported. Screenin:31 Abuse screen: Denies threats or abuse. Denies injuries from another. Nutritional hb screening: No deficits noted. Tuberculosis screening: No symptoms or risk factors identified. Fall Risk None identified. Assessment: 14:05 VAN Scoring: Arm Drift: Patients demonstrates NO arm weakness. Patient is VAN Negative. sv Visual Disturbance: Patient reports double vision. Provider notified of +VAN scoring. Aphasia: No aphasia noted. Neglect: No neglect noted. 14:07 Reassessment: Code Stroke called. sv 14:15 Reassessment: Dr King at bedside. sv 14:17 Reassessment: NIH scale done by Dr King. sv 14:30 General: Appears in no apparent distress. Behavior is calm, cooperative. Pain: Denies hb pain. Neuro: Level of Consciousness is awake, alert, obeys commands, Oriented to person, place, time, situation, [employer] are equal bilaterally Moves all extremities. Gait is steady, Speech is normal, Facial symmetry appears normal, Pupils are PERRLA, Intact Reports blurred vision. Cardiovascular: Heart tones S1 S2 present Capillary refill < 3 seconds Patient's skin is warm and dry. Respiratory: Airway is patent Respiratory effort is even, unlabored, Respiratory pattern is regular, symmetrical, Breath sounds are clear bilaterally. GI: No signs and/or symptoms were reported involving the gastrointestinal system. : No signs and/or symptoms were reported regarding the genitourinary system. EENT: No signs and/or symptoms were reported regarding the EENT system. Derm: Skin is intact, is healthy with good turgor, Skin is pink, warm \\T\\ dry. Musculoskeletal: No signs and/or symptoms reported regarding the musculoskeletal system. 14:35 Reassessment: reports CT Negative. hb 15:00 Patient has been NPO before screening. The patient is alert, and able to follow commands. The patient does not exhibit slurred or garbled speech. The patient is not exhibiting difficulty speaking. The patient does not exhibit difficulty understanding words. The patient is able to swallow own secretions with no drooling or need for suction. Patient tolerated one teaspoon of water. No drooling, immediate coughing, gurgling, or clearing of the throat was noted. The patient tolerated 90mL of water. No drooling, immediate coughing, gurgling, or clearing of the throat was noted. The patient passed the bedside swallow screening. Oral medications may be given as ordered. Contact Physician for further diet orders. 15:01 Provider notified of bedside swallow screening results: Bipin King MD. hb 15:05 Reassessment: Patient appears in no apparent distress at this time. No changes from previously documented assessment. Patient and/or family updated on plan of care and expected duration. Pain level reassessed. Patient is alert, oriented x 3, equal unlabored respirations, skin warm/dry/pink. 15:07 T-PA (Activase) Screening: Indications: Definite evidence of stroke, ischemic, embolic, hb or hypertensive: No. 16:15 Reassessment: Patient appears in no apparent distress at this time. No changes from hb previously documented assessment. Patient and/or family updated on plan of care and expected duration. Pain level reassessed. Patient is alert, oriented x 3, equal unlabored respirations, skin warm/dry/pink. 17:15 Reassessment: Patient appears in no apparent distress at this time. Patient and/or hb family updated on plan of care and expected duration. Pain level reassessed. Patient is alert, oriented x 3, equal unlabored respirations, skin warm/dry/pink. Patient denies pain at this time. Patient states symptoms have improved. Vital Signs: 14:30 BP 173 / 72; Pulse 67; Resp 21; Temp 98.2; Pulse Ox 98% on R/A; Pain 0/10; hb 15:05 BP 155 / 76; Pulse 64; Resp 19; Pulse Ox 99% on R/A; hb 16:00 BP 146 / 71; Pulse 65; Resp 16; Pulse Ox 100% on R/A; hb NIH Stroke Scale Scores: 14:25 NIHSS Score: 0 hb ED Course: 13:59 Patient arrived in ED. ag5 13:59 Unknown, Unknown is Private Physician. ag5 14:[address] via wheelchair. sv 14:11 Triage completed. sv 14:14 Patient moved back from CT. sv 14:15 CT Stroke Brain w/o Contrast In Process Unspecified. EDMS 14:15 Inserted saline lock: 20 gauge in right antecubital area, using aseptic technique. sv 14:15 Initial lab(s) drawn, by ED staff, by EMS personnel. sv 14:15 Arm band placed on. hb 14:26 Bipin King MD is Attending Physician. wa 14:31 Zeinab Redd, RN is Primary Nurse. hb 14:32 Patient has correct armband on for positive identification. Bed in low position. Call hb light in reach. Side rails up X 1. 14:36 EKG done, by heating and cooling technician. reviewed by Bipin King MD. sm3 14:45 Stroke CXR 1 View In Process Unspecified. EDMS 15:48 MRI - Brain Wo Cont In Process Unspecified. EDMS 15:50 Patient moved to MRI via wheelchair. lc 16:09 MRI completed. Patient tolerated well. Patient moved back from MRI. em2 16:42 Ganga Judge MD is Referral Physician. wa 17:33 No provider procedures requiring assistance completed. IV discontinued, intact, hb bleeding controlled, No redness/swelling at site. Pressure dressing applied. Administered Medications: 15:04 Drug: NS 0.9% 500 ml Route: IV; Rate: bolus; Site: right antecubital; pc1 15:40 Follow up: Response: No adverse reaction; IV Status: Completed infusion hb 15:04 Drug: Aspirin Chewable Tablet 324 mg Route: PO; pc1 16:00 Follow up: Response: No adverse reaction hb Point of Care Testing: Blood Glucose: 14:19 Blood Glucose: 112 mg/dL; sv Ranges: Outcome: 16:42 Discharge ordered by . wa 17:33 Discharged to home ambulatory. hb 17:33 Condition: stable 17:33 Discharge instructions given to patient, family, Instructed on discharge instructions, follow up and referral plans. medication usage, Demonstrated understanding of instructions, follow-up care, medications. 17:37 Patient left the ED. NIH Stroke Scale - NIH Stroke Score Date: 09/18/2018 Time: 14:25 Total Score = 0 1a. Level of Consciousness (LOC) - 0(Alert) 1b. Level of Consciousness (LOC) (Year \\T\\ Age) - 0(Both) 1c. LOC Commands (Open \\T\\ Closes Eyes/Airplane Patroller) - 0(Both) 2. Best Gaze (Lateral Gaze Paresis) - 0(Normal) 3. Visual Field Loss - 0(No visual loss) 4. Facial Palsy - 0(Normal) 5a. Left Arm: Motor (10-second hold) - 0(No drift) 5b. Right Arm: Motor (10-second hold) - 0(No drift) 6a. Left Leg: Motor (5-second hold - always test supine) - 0(No drift) 6b. Right Leg: Motor (5-second hold - always test supine) - 0(No drift) 7. Limb Ataxia (finger/nose \\T\\ heel/miles - test with eyes open) - 0(Absent) 8. Sensory Loss (pinprick arms/legs/face) - 0(Normal) 9. Best Language: Aphasia (description/naming/reading) - 0(No aphasia) 10. Dysarthria (speech clarity - read or repeat words) - 0(Normal) 11. Extinction and Inattention (visual/tactile/auditory/spatial/personal) - 0(No abnormality) Initials: hb Signatures: Dispatcher [employer] Pamela Waters RN RN Martha Hazel Enrique 2 Zeinab Redd RN RN Bipin King MD MD wa Montes, Shakira 3 Mariana Khan5 Robb Luna pc1 Corrections: (The following items were deleted from the chart) 14:23 14:21 Inserted saline lock: 20 gauge in right antecubital area, using aseptic sv technique. pc1 15:06 14:30 BP 173 / 72; Pulse 122bpm; Resp 21bpm; Pulse Ox 98% RA; Temp 98.2F; Pain hb 0/10; hb 15:06 15:05 BP 155 / 76; Pulse 123bpm; Resp 19bpm; Pulse Ox 99% RA; hb hb 15:09 14:25 Patient has been NPO before screening. The patient is alert, and able to hb follow commands. The patient does not exhibit slurred or garbled speech. The patient is not exhibiting difficulty speaking. The patient does not exhibit difficulty understanding words. The patient is able to swallow own secretions with no drooling or need for suction. Patient tolerated one teaspoon of water. No drooling, immediate coughing, gurgling, or clearing of the throat was noted. The patient tolerated 90mL of water. No drooling, immediate coughing, gurgling, or clearing of the throat was noted. The patient passed the bedside swallow screening. Oral medications may be given as ordered. Contact Physician for further diet orders. 14: Provider notified of bedside swallow screening results: Bipin King MD [facility] 15: 15: Neuro: Reports hb hb
--- NOTE | 2018-09-18 20:20 | EKG ---
Test Date: 2018-09-18 Test Time: 14:26:04 Neonatal Pediatric Nurse: ROSEY MEASUREMENT RESULTS: Intervals: Rate: 65 IN: 158 QRSD: 92 QT: 404 QTc: 420 [place]: P: 52 IN: 158 QRS: -46 T: 0 INTERPRETIVE STATEMENTS: Normal sinus rhythm Incomplete right bundle branch block Left anterior fascicular block Septal infarct, age undetermined Abnormal ECG Compared to ECG 10/02/2017 12:48:34 Incomplete right bundle-branch block now present Left anterior fascicular block now present Myocardial infarct finding now present Electronically Signed On 09-18-18 20:18:37 CDT by Jg Thompson
== END 2018-09-18 17:37 | disposition home or self-care (01) ==
LOC: ER 13:58
DX: H53.2 Diplopia (principal); I10 Essential (primary) hypertension; Z85.3 Personal history of malignant neoplasm of breast; F03.90 Unspecified dementia, unspecified severity, without behavioral disturbance, psychotic disturbance, mood disturbance, and anxiety; Z95.818 Presence of other cardiac implants and grafts; Z90.12 Acquired absence of left breast and nipple; Z88.0 Allergy status to penicillin; Z88.1 Allergy status to other antibiotic agents; Z88.4 Allergy status to anesthetic agent; Z88.5 Allergy status to narcotic agent; Z88.6 Allergy status to analgesic agent; Z88.8 Allergy status to other drugs, medicaments and biological substances
CPT/HCPCS: 36415; 70450; 70551; 71045; 80048; 80076; 82962; 84484; 85025; 85610; 85652; 85730; 93005; 96360; 99284

== ENCOUNTER 2019-02-13 16:34 | Emergency (ER) | payer OTHER ==
--- OUTSIDE RECORDS SUMMARY | 2019-02-13 16:37 | XMS REPORT | Continuity of Care Document ---
:1935 Author Organization [employer] Care Team Providers Name Role Phone APProtect Unavailable Unavailable Problems Problem Status Onset Classification Date Comments Source Date Reported PHYSICAL Active 09/19/19 Condition 11/24/2014 Medical EXAMINATION 14 Group OTHER ACCIDENTAL Active 01/30/20 Condition 11/24/2014 Medical FALL FROM ONE LEVEL 13 Group TO ANOTHER OSTEOARTHRITIS Active Condition 11/24/2014 Medical Group OSTEOPOROSIS Active Condition 11/24/2014 Medical Group HYPERLIPIDEMIA Active Condition 11/24/2014 Medical Group HYPERTENSION Active Condition 11/24/2014 Medical Group Dementia Active Finding 10/04/[address] [facility] Diverticulitis Active Finding [...] [facility] [place] Donepezil AT BEDTIME Active [facility]18 [facility] [place] ANDER ALLERGY [...] Comments Source type Reported PCN Drug PCN allergy 3 Medical Group CIPRO Drug CIPRO allergy 3 Medical Group CODEINE Drug CODEINE allergy 3 Medical Group LORTAB Drug LORTAB allergy 3 Medical Group VICODIN Drug VICODIN allergy 3 Medical Group LIPITOR Drug LIPITOR allergy 3 Medical Group NIACIN Drug NIACIN MH allergy 3 Medical Group TRAMADOL HCL Drug TRAMADOL allergy HCL 3 Medical Group MORPHINE Drug MORPHINE allergy 3 Medical Group MEVACOR Drug MEVACOR allergy 3 Medical Group LOPID Drug LOPID allergy 3 Medical Group FOSAMAX Drug FOSAMAX allergy 3 Medical Group BACTRIM Drug BACTRIM allergy 3 Medical Group acetaminophen Itching Allergy [...] - Comment Comment [place] [facility] Total 0.5 0.3 - 1.2 10/[address] [address] Studies Bilirubin /2018 [facility] [place] [facility] Sodium Level 138 135 - 145 10/[address] [facility] [address] Studies /2018 [facility] [place] [facility] Serum Total 5.4 6.0 - 8.3 10/04 [facility] Studies Protein /2017 [facility] [place] [facility] Potassium 3.4 3.6 - 5.0 10/04 [facility] Studies Level /2017 [facility] [place] [facility] Magnesium 1.7 1.8 - 2.5 10/04 [facility] Studies Level /2017 [facility] [place] [facility] Glucose Level 95 65 - 120 10/04 [facility]. Studies /2017 [facility] [place] [facility] Globulin 2.3 2.3 - 3.5 10/04 [facility]. Studies /2017 [facility] [place] [facility] Estimat 56 90 10/04 [facility] Studies Glomerular /2017 [facility] Filtration [place] Rate Laboratory Creatinine 0.96 0.44 - 04 [facility] Studies 1.00 /2017 [facility] [place] [facility] Chloride 113 101 - 111 10/04 [facility]. Studies Level /2017 [facility] [place] [facility] Carbon 22 21 - 31 10/04 [facility] Studies Dioxide Level /2017 [facility] [place] [facility] Calcium Level 8.6 8.5 - 10.5 10/04 [facility]. Studies /2017 [facility] [place] [facility] Blood Urea 9 6 - 20 10/04 [facility] Studies Nitrogen /2017 [facility] [place] [facility] Aspartate 27 10 - 42 10/04 [facility] Studies Amino Transf /2017 [facility] (AST/SGOT) [place] [facility] Alkaline 72 42 - 121 10/04 [facility]. Studies Phosphatase /2017 [facility] [place] [facility] Albumin/Globu 1.3 1.1 - 1.8 10/04 [facility] Studies zara Ratio /2017 [facility] [place] [facility] Albumin 3.1 3.2 - 5.5 10/04 [facility]. Studies /2018 [facility] [place] [facility] Alanine 15 10 - 60 10/04 [facility] Studies Aminotransfer /2017 [facility] ase [place] (ALT/SGPT) Laboratory White Blood 3.3 4.3 - 10.9 10/04 [facility]. Studies Count /2017 [facility] [place] [facility] Red Cell 13.3 12.1 - 10/04 [facility]. Studies Distribution 15.2 /2017 [facility] Width [place] Laboratory Red Blood 3.26 3.86 - 10/04 [facility]. Studies Count 4.86 /2017 [facility] [place] [facility] Platelet 172 152 - 406 10/04 [facility]. Studies Count /2017 [facility] [place] [facility] Neutrophils % 56.5 41.7 - 10/04 [facility]. Studies 73.7 /2017 [facility] [place] [facility] Monocytes % 16.8 3.3 - 12.3 10/04 [facility]. Studies /2017 [facility] [place] Laboratory Mean Platelet 6.8 7.6 - 11.3 10/04 [facility]. Studies Volume /2017 [facility] [place] [facility] Mean 94.6 80 - 100 10/04 [facility]. Studies Corpuscular /2017 [facility] Volume [place] [facility] Mean 34.6 32.0 - 10/04 [facility] Studies Corpuscular 36.0 /2017 [facility] Hemoglobin [place] Concent Laboratory Mean 32.8 27.0 - 10/04 [facility] Studies Corpuscular 35.0 /2017 [facility] Hemoglobin [place] Laboratory Lymphocytes % 24.9 15.3 - 10/04 [facility]. Studies 44.8 /2017 [facility] [place] [facility] Hemoglobin 10.7 12.0 - 10/04 [facility]. Studies 15.0 /2017 [facility] [place] [facility] Hematocrit 30.8 36.0 - 10/04 [facility]. Studies 45.0 /2017 [facility] [place] [facility] Eosinophils % 1.3 0 - 4.4 10/04 [facility]. Studies /2017 [facility] [place] [facility] Basophils % 0.5 0 - 1.3 10/[address] [facility] [address] Studies /2018 [facility] [place] Laboratory Absolute 1.9 1.8 - 8.0 10/04 [facility]. Studies Neutrophil /2017 [facility] [place] Laboratory Absolute 0.6 0.1 - 1.3 10/04 [facility]. Studies Monocytes /2017 [facility] (CBC) [place] [facility] Absolute 0.8 0.7 - 4.9 10/04 [facility]. Studies Lymphocytes /2017 [facility] (CBC) [place] [facility] Absolute 0.0 0 - 0.5 10/04 [facility]. Studies Eosinophils /2017 [facility] (CBC) [place] [facility] Absolute 0.0 0 - 0.5 10/04 [facility] Studies Basophils /2017 [facility] (CBC) [place] Laboratory Amylase Level 197 28 - 100 10/02 [facility] Studies [facility] [place] [facility] Lipase 129 22 - 51 10/02 [facility] Studies [facility] [place] [facility] Urine pH 6.0 10/02 [facility] Studies [facility] [place] [facility] Urine Total Urine Total 10/02 [facility]. Studies Protein Protein [facility] [place] [facility] Urine 1.015 10/02 [facility]. Studies Specific /2017 [facility] [place] [facility] Urine Nitrite Urine 10/02 [facility]. Studies Nitrite [facility] [place] [facility] Urine Urine 10/02 [facility] Studies Leukocyte Leukocyte [facility] Esterase Esterase [place] [facility] Urine Ketones Urine 10/02 [facility] Studies Ketones [facility] [place] [facility] Urine Glucose Urine 10/02 [facility] Studies Glucose [facility] [place] [facility] Urine Blood Urine Blood 10/02 [facility] Studies [facility] [place] [facility] B-Type 79 10/02 [facility]. Studies Natriuretic [facility] Peptide [place] Laboratory Creatine 1.6 0.3 - 4.0 10/02 [facility] Studies Kinase MB [facility] [place] [facility] Direct 0.1 0 - 0.2 10/02 [facility] Studies Bilirubin [facility] [place] [facility] Creatine 62 22 - 269 10/02 [facility]. Studies Kinase /2017 [facility] [place] Laboratory Prothrombin 11.1 9.5 - 12.5 10/02 [facility] Studies Time [facility] [place] [facility] INR 0.94 10/02 [facility] Studies International /2017 [facility] Normalized [place] Ratio Laboratory Activated 27.9 24.3 - 10/02 [facility] Studies Partial 36.9 2018 [facility] Thromboplast [place] Time Laboratory Rapid <0.03 10/02 [facility] Studies Troponin I [facility] [place] Chemistry CHOLESTEROL 269 - 199 11/24 Medical /2014 Group Chemistry TRIGLYCERIDE 224 - 149 06 Medical /2014 Group Chemistry HDL 59 >=61 11/24 Medical /2014 Group Chemistry LDL 165 - 99 11/24 Medical /2014 Group Chemistry SODIUM 137 MEQ/L 135 - 145 11/24 Group Chemistry POTASSIUM 4.5 MEQ/L 3.5 - 5.1 11/24 Group Chemistry CREATININE 1.2 0.5 - 1.4 11/24 Group Chemistry BUN 28 7 - 22 11/24 Group Chemistry BUN/CREAT 23 6 - 25 11/24 Group Chemistry ALBUMIN 4.6 3.5 - 5.0 11/24 Group Chemistry CALCIUM 9.9 8.5 - 10.5 11/24 Group Chemistry SGPT (ALT) 15 0 - 65 11/24 Group Chemistry SGOT (AST) 15 0 - 37 11/24 Group Chemistry ALK PHOS 123 39 - 136 11/24 Group Chemistry TSH 1.230 0.360 - 11/24 Medical Group Hematology HGB 12.6 12.0 - 11/24 Medical 16.0 Group Hematology HCT 36.8 36.0 - 11/24 Medical 48.0 2015 Group Hematology PLATELETS 239 K/CMM 133 - 450 11/24 Group Chemistry CHOLESTEROL 292 - 199 09/18 Group Chemistry TRIGLYCERIDE 260 - 149 09/18 Group Chemistry HDL 50 >=61 09/18 Group Chemistry SODIUM 140 MEQ/L 135 - 145 09/18 Group Chemistry POTASSIUM 4.2 MEQ/L 3.5 - 5.1 09/18 Group Chemistry CREATININE 1.2 0.5 - 1.4 09/18 Group Chemistry BUN 25 7 - 22 09/18 Group Chemistry BUN/CREAT 21 6 - 25 09/18 Group Chemistry ALBUMIN 4.8 3.5 - 5.0 09/18 Group Chemistry CALCIUM 9.8 8.5 - 10.5 09/18 Group Chemistry SGPT (ALT) 17 0 - 65 09/18 Group Chemistry SGOT (AST) 18 0 - 37 09/18 Group Chemistry ALK PHOS 98 39 - 136 09/18 Group Chemistry TSH 1.300 0.360 - 09/18 Medical Group Chemistry CHOLESTEROL 292 - 199 09/18 Group Chemistry TRIGLYCERIDE 260 - 149 09/18 Group Chemistry HDL 50 >=61 09/18 Group Chemistry LDL 190 - 99 09/18 Group Chemistry SODIUM 140 MEQ/L 135 - 145 09/18 Group Chemistry POTASSIUM 4.2 MEQ/L 3.5 - 5.1 09/18 Group Chemistry CREATININE 1.2 0.5 - 1.4 09/18 Group Chemistry BUN 25 7 - 22 09/18 Group Chemistry BUN/CREAT 21 6 - 25 09/18 Group Chemistry ALBUMIN 4.8 3.5 - 5.0 09/18 Group Chemistry CALCIUM 9.8 8.5 - 10.5 09/18 Group Chemistry SGPT (ALT) 17 0 - 65 09/18 Group Chemistry SGOT (AST) 18 0 - 37 09/18 Group Chemistry ALK PHOS 98 39 - 136 09/18 Group Chemistry TSH 1.300 0.360 - 09/18 Medical Group Chemistry CHOLESTEROL 292 - 199 09/18 Group Chemistry TRIGLYCERIDE 260 - 149 09/18 Group Chemistry HDL 50 >=61 09/18 Group Chemistry LDL 190 - 99 09/18 Group Chemistry SODIUM 140 MEQ/L 135 - 145 09/18 Group Chemistry POTASSIUM 4.2 MEQ/L 3.5 - 5.1 09/18 Group Chemistry CREATININE 1.2 0.5 - 1.4 09/18 Group Chemistry BUN 25 7 - 22 09/18 Group Chemistry BUN/CREAT 21 6 - 25 09/18 Group Chemistry ALBUMIN 4.8 3.5 - 5.0 09/18 Group Chemistry CALCIUM 9.8 8.5 - 10.5 09/18 Group Chemistry SGPT (ALT) 17 0 - 65 09/18 Group Chemistry SGOT (AST) 18 0 - 37 09/18 Group Chemistry ALK PHOS 98 39 - 136 09/18 Group Chemistry TSH 1.300 0.360 - 09/18 Group Chemistry SGOT (AST) 18 0 - 37 09/18 Group Chemistry ALK PHOS 98 39 - 136 09/18 Group Chemistry TSH 1.300 0.360 - 09/18 Group Hematology HGB 13.4 12.0 - 09/18 Group Hematology HCT 39.6 36.0 - 09/18 Medical Group Hematology PLATELETS 226 K/CMM 133 - 450 09/18 Group Hematology HGB 13.4 12.0 - 09/18 Medical Group Hematology HCT 39.6 36.0 - 09/18 Medical Group Hematology PLATELETS 226 K/CMM 133 - 450 09/18 Group Hematology HGB 13.4 12.0 - 09/18 Group Hematology HCT 39.6 36.0 - 09/18 Group Hematology PLATELETS 226 K/CMM 133 - 450 09/18 Group [employer] PAP SMEAR Done 10/27 Group [employer] PAP SMEAR Done 10/27 Group [employer] PAP SMEAR Done 10/27 Group [employer] PAP SMEAR Done 10/27 Group [employer] PAP SMEAR Done 10/27 Group [employer] PAP SMEAR Done 10/27 Group Pathology Reports No Data Provided for This Section Diagnostic Reports No Data Provided for This Section Consultation Notes No Data Provided for This Section Discharge Summaries No Data Provided for This Section History and Physicals No Data Provided for This Section Vital Signs Vital Sign Value Date Comments [...] For Provider Date Date Visit [facility] [id number] [place] 01/29 01/29 [place] Visit [address] [facility] Medical Medical MD Group Group [facility] Office [id number] El 09/18 09/18 [place] Visit 6980 [facility] Medical Medical MD Group Group [facility] Lab Report [id number] El 09/18 09[facility] Group [facility] Office [id number] El 11/24 11/24 [place] Visit 7790 [facility] Medical Medical MD Group Group [facility] St. Departed [id number] 08/29 08/[address] [facility]2017 [facility] [place] [facility] [facility] [id number] 10/02 10/04 [facility]2017 [facility] [place] Procedures Procedure Code Date Perfomer Comments Source Clostridium CH[facility]STOPHER Espinoza difficile Toxin 8 - [place] Assay [id number] CH[facility] Espinoza 8 - [place] Count [id number] CHRISTOPHER Espinoza 8 - [place] Abdomen & Pelvis [id number] CHRISTOPHER Espinoza W Contrast 8 - [place] Chest Single [id number] CHRISTOPHER Espinoza View 8 - [place] Head Brain Wo [id number] CHRISTOPHER Espinoza Cont 8 - [place] mammogram 10465 Complete Medical 3 Group vaginal Pap 58506 Done Medical smear results 1 Group colonoscopy 41066 Done Medical 2 Group bone density 4002.65 Done Medical 2 Group Assessment and Plan No Data Provided for This Section Plan of Care Plan of Care Date Source Instructions 10/04/[address] [facility] [place] DI for Diverticulitis DI for High Blood Pressure Colonoscopy, Adult Instructions 10/04/[address] [facility] [place] DI for Diverticulitis DI for High Blood Pressure Colonoscopy, Adult Social History Social History Date Source Query Response Date Recorded Comment 10/04/[address] [facility] [place] Alcohol Use? No October 02, 2017 4:07pm CD- Drugs? No October 02, 2017 4:07pm Query Response Start Date Stop Date Smoking Status Never smoker Family History Value Date Source Query Response Instance Date Recorded Comment 10/04/[address] [facility] [place] Medical History Heart disease Cancer Father October 02, 2017 4:07pm Medical History Cancer Brother October 02, 2017 4:07pm Advance Directives Order Name Results Value Date Source Advance Directives Advance Directives Advance Directive Response Recorded Date/Time 10/04/2017 [facility] Espinoza - Does Patient Have Living Will [place] No October 03, 2017 6:00pm Durable Power of Inhalation Therapist for Health Care Yes October 02, 2017 4:07pm Would you like additional information No October 02, 2017 4:07pm Functional Status No Data Provided for This Section
--- OUTSIDE RECORDS SUMMARY | 2019-02-13 16:38 | XMS REPORT | Continuity of Care Document ---
:1935 Author Organization [facility] Care Team Providers Name Role Phone MD Enoch, El Unavailable Unavailable Insurance Providers Payer name Policy type / Policy ID Covered libertarian ID Policy Parks Coverage type [place] [employer] AARP HEALTHCARE OPTIONS (MEDICARE SUPPLEMENT UNITED HEALTHCARE (INDEMNITY) AARP HEALTHCARE OPTIONS (MEDICARE SUPPLEMENT [place]: [place] [place] [employer] AARP HEALTHCARE OPTIONS (MEDICARE SUPPLEMENT Encounters Encounter Performer Location Date Lab Report El Kendall MD [facility] Sep 18, 2013 Allergies, Adverse Reactions, Alerts [...] 2013Sep 18, platelet count PLATELETS 226 K/CMM 666-004 3665 /mm3 Sep 18, hemoglobin, blood HGB 13.4 g/dL 12.0-16.0 2013Sep 18, hematocrit, blood HCT 39.6 % 36.0-48.0 2013Sep 18, platelet count PLATELETS 226 K/CMM 344-851 1466 /mm3 Sep 18, hemoglobin, blood HGB 13.4 g/dL 12.0-16.0 2013Sep 18, hematocrit, blood HCT 39.6 % 36.0-48.0 2013Sep 18, platelet count PLATELETS 226 K/CMM 898-729 8571 /mm3 Sep 18, cholesterol, serum CHOLESTEROL 292 mg/dl <=199 High 2013Sep 18, triglyceride, serum, TRIGLYCERIDE 260 mg/dl <=149 High 2013 fasting Sep 18, HDL cholesterol, HDL 50 mg/dl >=61 Low 2013Sep 18, sodium, serum SODIUM 140 MEQ/L [phone] mmol/L Sep 18, potassium, serum POTASSIUM 4.2 [...] Sep 18, sodium, serum SODIUM 140 MEQ/L [phone] mmol/L Sep 18, potassium, serum POTASSIUM 4.2 [...] Sep 18, sodium, serum SODIUM 140 MEQ/L 135-203 9971 mmol/L Sep 18, potassium, serum POTASSIUM 4.2 [...]
--- OUTSIDE RECORDS SUMMARY | 2019-02-13 16:38 | XMS REPORT | Continuity of Care Document ---
:1935 Author Organization [facility] Care Team Providers Name Role Phone MD Enoch, El Unavailable Unavailable Insurance Providers Payer name Policy type / Policy ID Covered green party ID Policy Parks Coverage type [place]: [employer] AARP HEALTHCARE OPTIONS (MEDICARE SUPPLEMENT UNITED HEALTHCARE (INDEMNITY) AARP HEALTHCARE OPTIONS (MEDICARE SUPPLEMENT MEDIC[place]: [employer] MED[place]: [employer] AARP HEALTHCARE OPTIONS (MEDICARE SUPPLEMENT AARP HEALTHCARE OPTIONS (MEDICARE SUPPLEMENT Encounters Encounter Performer Location Date Office Visit El Kendall MD [facility] Nov 24, 2014 Allergies, Adverse Reactions, Alerts [...] 2013Sep 18, platelet count PLATELETS 226 K/CMM [phone] /mm3 Sep 18, hemoglobin, blood HGB 13.4 g/dL 12.0-16.0 2013Sep 18, hematocrit, blood HCT 39.6 % 36.0-48.0 2013Sep 18, platelet count PLATELETS 226 K/CMM 215-940 2598 /mm3 Sep 18, hemoglobin, blood HGB 13.4 g/dL 12.0-16.0 2013Sep 18, hematocrit, blood HCT 39.6 % 36.0-48.0 2013Sep 18, platelet count PLATELETS 226 K/CMM 297-630 2055 /mm3 Nov 24, hemoglobin, blood HGB 12.6 g/dL 12.0-16.0 2014Nov 24, hematocrit, blood HCT 36.8 % 36.0-48.0 2014Nov 24, platelet count PLATELETS 239 K/CMM 291-201 9627 /mm3 Sep 18, cholesterol, serum CHOLESTEROL 292 mg/dl <=199 High 2013Sep 18, triglyceride, serum, TRIGLYCERIDE 260 mg/dl <=149 High 2013 fasting Sep 18, HDL cholesterol, HDL 50 mg/dl >=61 Low 2013 serum Sep 18, sodium, serum SODIUM 140 MEQ/L [phone] mmol/L Sep 18, potassium, serum POTASSIUM 4.2 [...] Sep 18, sodium, serum SODIUM 140 MEQ/L [phone] mmol/L Sep 18, potassium, serum POTASSIUM 4.2 [...] 2013Sep 18, sodium, serum SODIUM 140 MEQ/L [phone] mmol/L Sep 18, potassium, serum POTASSIUM 4.2 [...] 2014Nov 24, sodium, serum SODIUM 137 MEQ/L [phone] mmol/L Nov 24, potassium, serum POTASSIUM 4.5 [...]
--- OUTSIDE RECORDS SUMMARY | 2019-02-13 16:38 | XMS REPORT | Continuity of Care Document ---
:1935 Author Organization [facility] Care Team Providers Name Role Phone MD Enoch, El Unavailable Unavailable Insurance Providers Payer name Policy type / Policy ID Covered republican ID Policy Parks Coverage type [place]IC[place] [employer] AARP HEALTHCARE OPTIONS (MEDICARE SUPPLEMENT UNITED HEALTHCARE (INDEMNITY) AARP HEALTHCARE OPTIONS (MEDICARE SUPPLEMENT MEDIC[place] [employer] Encounters Encounter Performer Location Date Office Visit El Kendall MD [facility] Jan 29, 2013 Allergies, Adverse Reactions, Alerts [...]
--- OUTSIDE RECORDS SUMMARY | 2019-02-13 16:38 | XMS REPORT | Continuity of Care Document ---
:1935 Author Organization [facility] Care Team Providers Name Role Phone MD Enoch, El Unavailable Unavailable Insurance Providers Payer name Policy type / Policy ID Covered green party ID Policy Parks Coverage type [place]IC[place]: [employer] AARP HEALTHCARE OPTIONS (MEDICARE SUPPLEMENT UNITED HEALTHCARE (INDEMNITY) AARP HEALTHCARE OPTIONS (MEDICARE SUPPLEMENT MED[place] B[place]: [place]AS SOL[employer]IONS MEDIC[place]: NOV[employer]AS [employer] AARP HEALTHCARE OPTIONS (MEDICARE SUPPLEMENT Encounters Encounter Performer Location Date Office Visit El Kendall MD [facility] Sep 18, 2013 Allergies, Adverse [...]
--- OUTSIDE RECORDS SUMMARY | 2019-02-13 16:38 | XMS REPORT | Continuity of Care Document ---
:1935 Author Organization [facility] Care Team Providers Name Role Phone [...] Location Date Office Visit El Kendall MD [facility] Nov 24, 2014 Allergies, Adverse [...] 2013Sep 18, platelet count PLATELETS 226 K/CMM [phone] /mm3 Sep 18, hemoglobin, blood HGB 13.4 g/dL 12.0-16.0 2013Sep 18, hematocrit, blood HCT 39.6 % 36.0-48.0 2013Sep 18, platelet count PLATELETS 226 K/CMM [phone] /mm3 Sep 18, hemoglobin, blood HGB 13.4 g/dL 12.0-16.0 2013Sep 18, hematocrit, blood HCT 39.6 % 36.0-48.0 2013Sep 18, platelet count PLATELETS 226 K/CMM 114-977 7754 /mm3 Sep 18, cholesterol, serum CHOLESTEROL 292 mg/dl <=199 High 2013Sep 18, triglyceride, serum, TRIGLYCERIDE 260 mg/dl <=149 High 2013Sep 18, HDL cholesterol, HDL 50 mg/dl >=61 Low 2013 serum Sep 18, sodium, serum SODIUM 140 MEQ/L [phone] mmol/L Sep 18, potassium, serum POTASSIUM 4.2 [...] Sep 18, sodium, serum SODIUM 140 MEQ/L [phone] mmol/L Sep 18, potassium, serum POTASSIUM 4.2 [...] 2013Sep 18, sodium, serum SODIUM 140 MEQ/L [phone] mmol/L Sep 18, potassium, serum POTASSIUM 4.2 [...]
[2019-02-13] MEDS ORDERED: HYDRALAZINE HCL 20 MG/ML VIAL ONE (17:15)
[2019-02-13 17:23] LABS: Absolute Lymphocytes (CBC) 0.8 K/uL (0.7-4.9); Basophils % 0.3 % (0-1.3); Hematocrit 37.9 % (36.0-45.0); Lymphocytes % 14.4 % (15.3-44.8); MPV 7.7 fL (7.6-11.3)
[2019-02-13 17:26] LABS: Protime INR 1.01
--- NOTE | 2019-02-13 17:39 | RAD REPORT ---
EXAM DESCRIPTION: RAD - Chest Single View - 02/13/2019 5:25 pm CLINICAL HISTORY: CHEST PAIN Chest pain. COMPARISON: <Comparisons> FINDINGS: Portable technique limits examination quality. The lungs are mildly emphysematous but grossly clear. The heart is normal in size. No displaced fract ures. IMPRESSION: Mild COPD.
[2019-02-13 17:44] LABS: BUN Blood Urea Nitrogen 18 mg/dL (7-18); Bicarbonate 26 mmol/L (21-32); Glucose Level 108 mg/dL (74-106); Magnesium 2.3 mg/dL (1.8-2.4); NT PRO-BNP 104 pg/mL (<450); Potassium 3.7 mmol/L (3.5-5.1); Sodium Level 143 mmol/L (136-145); Troponin (Emerg Dept Use Only) < 0.02 ng/mL (0.0-0.045)
--- NOTE | 2019-02-13 18:02 | ER ---
Nurse's Notes [facility] Name: Marta Butterfield Age: 83 yrs Sex: Female : 1935 Arrival Date: 02/13/2019 Time: 16:36 Bed 14 Private MD: Asad Buckley H Diagnosis: Hypertensive Emergency Presentation: 02/13 16:41 Presenting complaint: Child states: At about 1200 she had a visitor over and she had a la1 wave of KEARNEY, dizziness, and her BP was elevated. at 1400 she took her meds at home. Transition of care: patient was not received from another setting of care. Onset of symptoms was February 13, 2019. Risk Assessment: Do you want to hurt yourself or someone else? Patient reports no desire to harm self or others. Initial Sepsis Screen: Does the patient meet any 2 criteria? No. Patient's initial sepsis screen is negative. Does the patient have a suspected source of infection? No. Patient's initial sepsis screen is negative. Care prior to arrival: None. 16:41 Method Of Arrival: Ambulatory la1 16:41 Acuity: SANTI 2 la1 Historical: - Allergies: 16:40 Bactrim; la1 16:40 Ciprofloxacin; la1 16:40 Codeine; la1 16:40 Fosamax; la1 16:40 general anesthesia; la1 16:40 Lipitor; la1 16:40 Lortab; la1 16:40 Mevacor; la1 16:40 Morphine; la1 16:40 Multiple Allergies List Not Available; la1 16:40 Niacin; la1 16:40 pain medicine; la1 16:40 PENICILLINS; la1 16:40 tramadol; la1 16:40 Vicodin; la1 - Home Meds: 16:40 Norvasc 2.5 mg Oral tab [Active]; donepezil 10 mg Oral tab 1 tab once daily [Active]; la1 aspirin 81 mg Oral chew [Active]; 16:41 memantine 10 mg oral tab 1 tab 2 times per day [Active]; la1 - PMHx: 16:40 Diverticulitis; Hypertension; breast cancer; Dementia; la1 - Immunization history:: Adult Immunizations up to date. - Social history:: Smoking status: Patient/guardian denies using tobacco. - Ebola Screening: : No symptoms or risks identified at this time. Screenin:21 Abuse screen: Denies threats or abuse. Denies injuries from another. Nutritional jl7 screening: No deficits noted. Tuberculosis screening: No symptoms or risk factors identified. Fall Risk IV access (20 points). Total Sims Fall Scale indicates No Risk (0-24 pts). Assessment: 17:21 General: Appears in no apparent distress. uncomfortable, Behavior is calm, cooperative, jl7 appropriate for age. Pain: Denies pain. Neuro: Level of Consciousness is awake, alert, obeys commands, Oriented to person, place, time, situation, Speech is normal, Facial symmetry appears normal. Cardiovascular: Denies chest pain, Patient's skin is warm and dry. Respiratory: Airway is patent Respiratory effort is even, unlabored, Respiratory pattern is regular, symmetrical, Denies shortness of breath. GI: No signs and/or symptoms were reported involving the gastrointestinal system. : No signs and/or symptoms were reported regarding the genitourinary system. EENT: No signs and/or symptoms were reported regarding the EENT system. Derm: Skin is pink, warm \T\ dry. Vital Signs: 16:40 BP 219 / 84; Pulse 73; Resp 16; Temp 97.5; Pulse Ox 98% on R/A; Weight 58.97 kg; Height la1 5 ft. 6 in. (167.64 cm); 17:21 BP 175 / 82; Pulse 67; Resp 16 S; Pulse Ox 100% on R/A; Pain 0/10; jl7 17:37 BP 154 / 64; Pulse 76; Resp 16 S; Pulse Ox 100% on R/A; jl7 16:40 Body Mass Index 20.98 (58.97 kg, 167.64 cm) la1 NIH Stroke Scale Scores: 17:16 NIHSS Score: 0 jr8 ED Course: 16:36 Patient arrived in ED. as 16:36 Asad Buckley DO is Private Physician. as 16:40 Arm band placed on right wrist. la1 16:42 Triage completed. la1 16:48 Kurt Salas PA is PHCP. jr8 16:48 Kane Madrid MD is Attending Physician. jr8 16:50 Shon Norris RN is Primary Nurse. jl7 17:09 Initial lab(s) drawn, by me, sent to lab. Inserted saline lock: 22 gauge in right dh3 antecubital area, using aseptic technique. Blood collected. 17:14 EKG done, by marine fisheries technician. reviewed by Kurt JOYCE. 3 17:21 Patient has correct armband on for positive identification. Placed in gown. Bed in low jl7 position. Call light in reach. Side rails up X 1. vehicle monitor technician on. Pulse ox on. NIBP on. Warm blanket given. 17:26 XRAY Chest (1 view) In Process Unspecified. EDMS 18:00 Asad Buckley DO is Referral Physician. jr8 18:35 No provider procedures requiring assistance completed. IV discontinued, intact, jl7 bleeding controlled, No redness/swelling at site. Pressure dressing applied. Administered Medications: 17:21 Drug: hydrALAZINE 10 mg Route: IV; Rate: calculated rate; Site: right antecubital; jl7 17:38 Follow up: Response: Blood pressure is lowered; IV Status: Completed infusion jl7 Outcome: 18:01 Discharge ordered by . jr8 18:35 Discharged to home ambulatory, with family. jl7 18:35 Condition: stable 18:35 Discharge instructions given to patient, family, Instructed on discharge instructions, follow up and referral plans. Demonstrated understanding of instructions, follow-up care. 18:36 Patient left the ED. jl7 NIH Stroke Scale - NIH Stroke Score Date: 02/13/2019 Time: 17:16 Total Score = 0 1a. Level of Consciousness (LOC) - 0(Alert) 1b. Level of Consciousness (LOC) (Year \T\ Age) - 0(Both) 1c. LOC Commands (Open \T\ Closes Eyes/Budder) - 0(Both) 2. Best Gaze (Lateral Gaze Paresis) - 0(Normal) 3. Visual Field Loss - 0(No visual loss) 4. Facial Palsy - 0(Normal) 5a. Left Arm: Motor (10-second hold) - 0(No drift) 5b. Right Arm: Motor (10-second hold) - 0(No drift) 6a. Left Leg: Motor (5-second hold - always test supine) - 0(No drift) 6b. Right Leg: Motor (5-second hold - always test supine) - 0(No drift) 7. Limb Ataxia (finger/nose \T\ heel/miles - test with eyes open) - 0(Absent) 8. Sensory Loss (pinprick arms/legs/face) - 0(Normal) 9. Best Language: Aphasia (description/naming/reading) - 0(No aphasia) 10. Dysarthria (speech clarity - read or repeat words) - 0(Normal) 11. Extinction and Inattention (visual/tactile/auditory/spatial/personal) - 0(No abnormality) Initials: jacki Signatures: Dispatcher [employer] Tona Cesar Josh, PA PA jr8 Delgado Tolentino RN RN la1 Shon Norris RN RN jl7 Maki Fletcher 3 Anabelle Newman 3 Corrections: (The following items were deleted from the chart) 16:41 16:40 Home Meds: valsartan 80 mg Oral tab 1 tab 2 times per day; la1 la1
--- NOTE | 2019-02-13 18:02 | EDPHYS ---
Physician Documentation [facility] Name: Marta Butterfield Age: 83 yrs Sex: Female : 1935 Arrival Date: 02/13/2019 Time: 16:36 Bed 14 Private MD: Asad Buckley H ED Physician Kane Madrid HPI: 02/13 17:16 This 83 yrs old Female presents to ER via Ambulatory with complaints of jr8 Headache, Dizziness, High Blood Pressure. 17:16 Onset: The symptoms/episode began/occurred acutely, today. Associated signs and jr8 symptoms: Pertinent positives: chest tightness, nausea . Severity of symptoms: At its worst the pain was moderate, in the emergency department the pain has improved. It is unknown whether or not the patient has had similar symptoms in the past. The patient has not recently seen a physician. Historical: - Allergies: 16:40 Bactrim; la1 16:40 Ciprofloxacin; la1 16:40 Codeine; la1 16:40 Fosamax; la1 16:40 general anesthesia; la1 16:40 Lipitor; la1 16:40 Lortab; la1 16:40 Mevacor; la1 16:40 Morphine; la1 16:40 Multiple Allergies List Not Available; la1 16:40 Niacin; la1 16:40 pain medicine; la1 16:40 PENICILLINS; la1 16:40 tramadol; la1 16:40 Vicodin; la1 - Home Meds: 16:40 Norvasc 2.5 mg Oral tab [Active]; donepezil 10 mg Oral tab 1 tab once daily [Active]; la1 aspirin 81 mg Oral chew [Active]; 16:41 memantine 10 mg oral tab 1 tab 2 times per day [Active]; la1 - PMHx: 16:40 Diverticulitis; Hypertension; breast cancer; Dementia; la1 - Immunization history:: Adult Immunizations up to date. - Social history:: Smoking status: Patient/guardian denies using tobacco. - Ebola Screening: : No symptoms or risks identified at this time. ROS: 17:16 Eyes: Negative for injury, pain, redness, and discharge, ENT: Negative for injury, jr8 pain, and discharge, Neck: Negative for injury, pain, and swelling, Respiratory: Negative for shortness of breath, cough, wheezing, and pleuritic chest pain, Back: Negative for injury and pain, MS/Extremity: Negative for injury and deformity, Skin: Negative for injury, rash, and discoloration. 17:16 Cardiovascular: Positive for chest pain, Negative for edema, orthopnea, palpitations, paroxysmal nocturnal dyspnea. 17:16 Abdomen/GI: Positive for nausea, Negative for abdominal pain, vomiting, diarrhea, constipation, abdominal cramps, abdominal distension. 17:16 Neuro: Positive for dizziness, headache, Negative for altered mental status, numbness, speech changes, syncope, near syncope, tingling, tinnitus, tremor, visual changes, weakness. Exam: 17:16 Eyes: Pupils equal round and reactive to light, extra-ocular motions intact. Lids and jr8 lashes normal. Conjunctiva and sclera are non-icteric and not injected. Cornea within normal limits. Periorbital areas with no swelling, redness, or edema. ENT: Nares patent. No nasal discharge, no septal abnormalities noted. Tympanic membranes are normal and external auditory canals are clear. Oropharynx with no redness, swelling, or masses, exudates, or evidence of obstruction, uvula midline. Mucous membranes moist. Neck: Trachea midline, no thyromegaly or masses palpated, and no cervical lymphadenopathy. Supple, full range of motion without nuchal rigidity, or vertebral point tenderness. No Meningismus. Cardiovascular: Regular rate and rhythm with a normal S1 and S2. No gallops, murmurs, or rubs. Normal PMI, no JVD. No pulse deficits. Respiratory: Lungs have equal breath sounds bilaterally, clear to auscultation and percussion. No rales, rhonchi or wheezes noted. No increased work of breathing, no retractions or nasal flaring. Abdomen/GI: Soft, non-tender, with normal bowel sounds. No distension or tympany. No guarding or rebound. No evidence of tenderness throughout. Back: No spinal tenderness. No costovertebral tenderness. Full range of motion. Skin: Warm, dry with normal turgor. Normal color with no rashes, no lesions, and no evidence of cellulitis. MS/ Extremity: Pulses equal, no cyanosis. Neurovascular intact. Full, normal range of motion. Neuro: Awake and alert, GCS 15, oriented to person, place, time, and situation. Cranial nerves II-XII grossly intact. Motor strength 5/5 in all extremities. Sensory grossly intact. Cerebellar exam normal. Normal gait. Vital Signs: 16:40 BP 219 / 84; Pulse 73; Resp 16; Temp 97.5; Pulse Ox 98% on R/A; Weight 58.97 kg; Height la1 5 ft. 6 in. (167.64 cm); 17:21 BP 175 / 82; Pulse 67; Resp 16 S; Pulse Ox 100% on R/A; Pain 0/10; jl7 17:37 BP 154 / 64; Pulse 76; Resp 16 S; Pulse Ox 100% on R/A; jl7 16:40 Body Mass Index 20.98 (58.97 kg, 167.64 cm) la1 NIH Stroke Scale Scores: 17:16 NIHSS Score: 0 jr8 MDM: 16:48 Patient medically screened. 8 18:00 Data reviewed: vital signs, nurses notes, lab test result(s), EKG, radiologic studies, 8 plain films, and as a result, I will discharge patient. Data interpreted: Pulse oximetry: on room air is 100 %. Interpretation: normal. Counseling: I had a detailed discussion with the patient and/or guardian regarding: the historical points, exam findings, and any diagnostic results supporting the discharge/admit diagnosis, lab results, radiology results, the need for outpatient follow up, a family practitioner, to return to the emergency department if symptoms worsen or persist or if there are any questions or concerns that arise at home. Response to treatment: the patient's symptoms have markedly improved after treatment. 02/13 16:58 Order name: Basic Metabolic Panel; Complete Time: 18:00 02/13 16:58 Order name: CBC with Diff; Complete Time: 17:27 02/13 16:58 Order name: Magnesium; Complete Time: 18:00 02/13 16:58 Order name: NT PRO-BNP; Complete Time: 18:00 02/13 16:58 Order name: PT-INR; Complete Time: 17:30 02/13 16:58 Order name: Troponin (emerg Dept Use Only); Complete Time: 18:00 02/13 16:58 Order name: XRAY Chest (1 view); Complete Time: 18:00 02/13 16:58 Order name: EKG; Complete Time: 17:00 02/13 16:58 Order name: Cardiac monitoring; Complete Time: 17:13 02/13 16:58 Order name: EKG - Nurse/Tech; Complete Time: 17:13 02/13 16:58 Order name: IV Saline Lock; Complete Time: 17:13 02/13 16:58 Order name: Labs collected and sent; Complete Time: 17:13 02/13 16:58 Order name: O2 Per Protocol; Complete Time: 17:02/13 16:58 Order name: O2 Sat Monitoring; Complete Time: 17: Administered Medications: 17:21 Drug: hydrALAZINE 10 mg Route: IV; Rate: calculated rate; Site: right antecubital; [facility] 17:38 Follow up: Response: Blood pressure is lowered; IV Status: Completed infusion 7 Disposition: 02/14 07:16 Co-signature as Attending Physician, Kane Madrid MD I agree with the assessment and roman plan of care. Disposition: 02/13/19 18:01 Discharged to Home. Impression: Hypertensive Emergency. - Condition is Stable. - Discharge Instructions: Hypertension. - Medication Reconciliation Form, Thank You Letter, Antibiotic Education, Prescription Opioid Use form. - Follow up: Asad Buckley DO; When: 2 - 3 days; Reason: Recheck today's complaints, Continuance of care, Re-evaluation by your physician. - Problem is new. - Symptoms have improved. NIH Stroke Scale - NIH Stroke Score Date: 02/13/2019 Time: 17:16 Total Score = 0 1a. Level of Consciousness (LOC) - 0(Alert) 1b. Level of Consciousness (LOC) (Year \T\ Age) - 0(Both) 1c. LOC Commands (Open \T\ Closes Eyes/Hand Router Operator) - 0(Both) 2. Best Gaze (Lateral Gaze Paresis) - 0(Normal) 3. Visual Field Loss - 0(No visual loss) 4. Facial Palsy - 0(Normal) 5a. Left Arm: Motor (10-second hold) - 0(No drift) 5b. Right Arm: Motor (10-second hold) - 0(No drift) 6a. Left Leg: Motor (5-second hold - always test supine) - 0(No drift) 6b. Right Leg: Motor (5-second hold - always test supine) - 0(No drift) 7. Limb Ataxia (finger/nose \T\ heel/miles - test with eyes open) - 0(Absent) 8. Sensory Loss (pinprick arms/legs/face) - 0(Normal) 9. Best Language: Aphasia (description/naming/reading) - 0(No aphasia) 10. Dysarthria (speech clarity - read or repeat words) - 0(Normal) 11. Extinction and Inattention (visual/tactile/auditory/spatial/personal) - 0(No abnormality) Initials: jr8 Signatures: Dispatcher [employer] EDMS Kane Madrid MD MD cha Roszak, Josh, PA PA jr8 Delgado Tolentino RN RN la1 Shon Norris RN RN jl7 Corrections: (The following items were deleted from the chart) 02/13 16:41 16:40 Home Meds: valsartan 80 mg Oral tab 1 tab 2 times per day; sergei mai 18:36 18:01 02/13/2019 18:01 Discharged to Home. Impression: Hypertensive Emergency. jl7 Condition is Stable. Forms are Medication Reconciliation Form, Thank You Letter, Antibiotic Education, Prescription Opioid Use. Follow up: Asad Buckley; When: 2 - 3 days; Reason: Recheck today's complaints, Continuance of care, Re-evaluation by your physician. Problem is new. Symptoms have improved. jr8
--- NOTE | 2019-02-14 07:14 | EKG ---
Test Date: 2019-02-13 Test Time: 17:00:34 Sanding Machine Buffer: CESAR MEASUREMENT RESULTS: Intervals: Rate: 67 UT: 178 QRSD: 100 QT: 420 QTc: 443 Rudyard: P: 27 UT: 178 QRS: -5 T: 33 INTERPRETIVE STATEMENTS: Normal sinus rhythm Normal ECG Compared to ECG 09/18/2018 14:26:04 Incomplete right bundle-branch block no longer present Left anterior fascicular block no longer present Myocardial infarct finding no longer present Electronically Signed On 02-14-19 07:13:22 CDT by Doe Sanchez
== END 2019-02-13 18:36 | disposition home or self-care (01) ==
LOC: ER 16:34
DX: I16.1 Hypertensive emergency (principal); I10 Essential (primary) hypertension; F03.90 Unspecified dementia, unspecified severity, without behavioral disturbance, psychotic disturbance, mood disturbance, and anxiety; Z85.3 Personal history of malignant neoplasm of breast; Z79.82 Long term (current) use of aspirin; Z88.0 Allergy status to penicillin; Z88.1 Allergy status to other antibiotic agents; Z88.3 Allergy status to other anti-infective agents; Z88.4 Allergy status to anesthetic agent; Z88.5 Allergy status to narcotic agent; Z88.6 Allergy status to analgesic agent
CPT/HCPCS: 96365; 93005; 85025; 80048; 36415; 83735; 85610; 84484; 83880; 71045; 99284; J0360